=== PATIENT | male | born 1955 | race Caucasian/White ===

== ENCOUNTER → 2019-03-08 | Outpatient (CLI) | payer MEDICARE, OTHER | END | disposition home or self-care (01) | LOC: LABPAT 15:19 | PROVIDERS: ATTEND Orthopaedic Surgery | DX: Z01.812 Encounter for preprocedural laboratory examination (principal) | CPT/HCPCS: 87070 ==

== ENCOUNTER 2019-03-21 11:02 | Day surgery (SDC) | payer MEDICARE, OTHER ==
--- NOTE | 2019-03-20 09:17 | HP ---
HISTORY AND PHYSICAL REASON FOR ADMISSION: Surgery scheduled for 03/21/2019 HISTORY OF PRESENT ILLNESS: Marbin Rosado is a 63-year-old patient seen with symptomatic left knee osteoarthritis. We discussed options for treatment. He elected to proceed with left total knee arthroplasty. Consent regarding the procedure was obtained. Medical clearance was provided by Dr. Coates's office. PAST MEDICAL HISTORY: Hypertension, hyperlipidemia. PAST SURGICAL HISTORY: Left knee arthroscopy. DAILY MEDICATIONS: Lisinopril, simvastatin, spironolactone, Naprosyn. ALLERGIES: None. SOCIAL HISTORY: Denies tobacco use. PHYSICAL EXAMINATION: Evaluation of the left knee: His range of motion is 0 to 115 degrees. He is tender along the medial joint line. There is crepitus along the medial and patellofemoral compartments with range of motion. There is pain with patellofemoral compression. Ligaments are stable. Hip rotation is without pain. His distal neurovascular exam is intact. RADIOGRAPHS: Radiographs of the left knee revealed severe medial and moderate patellofemoral compartment osteoarthritis. IMPRESSION: 1. Left knee osteoarthritis. 2. Hypertension. 3. Hyperlipidemia. PLAN: Left total knee arthroplasty. Surgery scheduled for 03/21/2019. MMODL / IJN: [id number] /
[~2019-03-21 11:02] MED LIST: HYDROmorphone 0.5 MG/0.5 ML SYRINGE IVP PRN; LIDOCAINE 1% 20 ML VIAL (10MG/ML) FOR IV START INTRADERMA PRN; MELOXICAM 7.5 MG TAB PO ONE; ONDANSETRON 4 MG/2 ML VIAL IVP ONE; ROPIVACAINE 246.25 MG, EPINEPHrine 0.5 MG, KETOROLAC 30 MG, cloNIDine HCL/PF 80 MCG, WA... MISCELLANE ONE; TRANEXAMIC ACID 1,000 MG in SODIUM CHLORIDE 0.9% 100 ML IVPB ONE
[2019-03-21] MEDS ORDERED: ACETAMINOPHEN TAB 500 MG TAB PO ONE (11:31)
[2019-03-21] MEDS: LACTATED RINGERS 1,000 ML IV SCH ×3 (11:50→16:50)
[2019-03-21] MEDS ORDERED: DEXAMETHASONE SOD PHOSPHATE 10 MG/ML 1 ML VIAL IV ONE (11:52)
[2019-03-21] MEDS ORDERED: fentaNYL (PF) 50 MCG/ML 2 ML AMP IVP ONE (11:56)
[2019-03-21] MEDS ORDERED: MIDAZOLAM PF (FBP) 2 MG/2 ML VIAL IVP ONE (11:56)
[2019-03-21] MEDS ORDERED: ROPIVACAINE 0.2%-NS ON-Q PUMP 1,090 MG, EMPTY PAIN BALL 1 EACH MISCELLANE PRN (12:21)
--- NOTE | 2019-03-21 12:23 | P.ANPRN ---
Procedure Note - Anesthesia - Nerve Block Performed Left Adductor Canal Infusion Time Out Performed: Yes Date of Procedure: 03/21/19 Procedure Start Time: 11:55 Procedure Stop Time: 12:07 Location of Patient Procedure: PreOp Indication: Acute Post-Operative Pain Specifically requested for management of pain by DrTenzin: Rafi Hodge Sedation Type: Sedate with meaningful contact maintained Preparation: Sterile Prep Position: Supine Catheter Depth at Skin (cm): 8 Catheter: Indwelling Needle Types: Pajunk Needle Gauge: 18 Ultrasound used to visualize needle placement: Yes Ultrasound used to observe medication spread: Yes Injectate: 0.5% Ropivacaine (see comment for volume) (20 cc) Blood Aspirated: No Pain Paresthesia on Injection Noted: No Resistance on Injection: Normal Image Stored and Saved: Yes Events: Uneventful and Well Tolerated
[2019-03-21] MEDS ORDERED: SODIUM CHLORIDE 0.9% 100 ML BAG ONE (13:18)
[2019-03-21] MEDS ORDERED: PROPOFOL 10 MG/ML 20 ML VIAL IV ONE (13:18)
[2019-03-21] MEDS ORDERED: PHENYLEPHRINE-0.9% NACL SYG 1 MG/10 ML SYRINGE ONE (13:18)
[2019-03-21] MEDS ORDERED: TRANEXAMIC ACID 1,000 MG/10 ML VIAL ONE (13:18)
[2019-03-21] MEDS ORDERED: MIDAZOLAM 2 MG/2 ML VIAL ONE (13:18)
[2019-03-21] MEDS ORDERED: fentaNYL (PF) 50 MCG/ML 2 ML AMP ONE (13:18)
[2019-03-21] MEDS ORDERED: ceFAZolin 3,000 MG in SODIUM CHLORIDE 0.9% IRRIGATIO 3,000 ML IRRIGATION ONE (13:48)
[2019-03-21] MEDS ORDERED: ONDANSETRON 4 MG/2 ML VIAL IVP PRN (15:18)
[2019-03-21] MEDS ORDERED: NALOXONE 0.4 MG/ML 1 ML VIAL IV PRN (15:18)
[2019-03-21] MEDS ORDERED: HYDROmorphone 1 MG/ML 1 ML SYRINGE IVP PRN (15:18)
[2019-03-21] MEDS ORDERED: HYDROmorphone 0.5 MG/0.5 ML SYRINGE IVP PRN ×2 (15:18)
[2019-03-21] MEDS ORDERED: HYDROcodone/APAP 5-325MG 1 EACH TAB PO PRN (15:18)
--- NOTE | 2019-03-21 15:18 | P.OP ---
Date of Procedure: 03/21/19 Preoperative Diagnosis: Left knee osteoarthritis Postoperative Diagnosis: Left knee osteoarthritis Procedure(s) Performed: Left total knee arthroplasty Implants: 1. Microport evolution size 6 left cemented femur 2. Microport evolution size 6 left cemented tibial baseplate 3. Microport evolution size 6 left CS 12 mm polyethylene tibial insert 4. Microport advance 38 mm all polyethylene cemented patella Anesthesia: regional (Adductor canal catheter), local, spinal Surgeon: Rafi Hodge Order Planner #1: Don Jang Estimated Blood Loss (ml): 30 Pathology: other (Bone) Condition: stable Disposition: PACU Indications for Procedure: 63-year-old patient seen with symptomatic left knee osteoarthritis. After having treatment options discussed, he elected to proceed with total knee arthroplasty. Operative Findings: See description of procedure Description of Procedure: Patient was taken to the operative suite after having an adductor canal catheter placed by the department of anesthesia for postoperative pain management. Patient underwent a spinal anesthetic by the department of anesthesia. Patient was given preoperative IV intake antibiotics and TXA. A well-padded tourniquet was placed about the left lower extremity. The lower extremity was then prepped and draped in the normal sterile orthopedic fashion. The extremity was elevated, a tourniquet was insufflated to 300. A standard anterior incision was made sharply through skin. Dissection was taken down through the subcutaneous soft tissues down to the extensor mechanism. A medial arthrotomy was performed, patella was everted and knee was flexed. There was advanced osteoarthritis noted. I introduced my distal intramedullary femoral drill. I then introduced the distal femoral cutting jig. Dada WEIR secured the cutting jig with 2 pins. I held retractors in position while Dada WEIR performed the distal femoral resection through the guide area we now removed her distal femoral cutting guide. We now placed our 4-in-1 femoral cutting block and positioned and it was secured with 2 pins by Dada WEIR while I held the block in position. The distal femoral finishing was now completed. A proximal tibial cutting guide was positioned. I held the guide in the appropriate position with both hands well Dada WEIR inserted stabilizing pins into the guide. Proxim al tibial cut was made. We now placed a trial femoral component into position, along with an appropriate size tibial tray and insert. We now took the knee through range of motion and had full extension good flexion and good overall soft tissue balance noted. The patella was everted and stabilized with 2 towel clips held by Dada WEIR while I performed a flush with patellar quad tendon utilizing a fresh sawblade. We templated the patella, appropriate drill holes were made. An appropriate trial patella was positioned, knee was taken through full range of motion with the patella tracking very nicely. The trial patella was removed. Drill holes were made through the femoral component. All trial components were removed after marking off the appropriate rotation of the tibia. Retractors were now positioned along the proximal tibia. An appropriate keel punch was made with the appropriate size tibial guide by myself on Dada WEIR assisted by holding retractors. At this point appropriate size implants were chosen and opened. The joint was irrigated copiously with pulse lavage mechanical irrigation. The posterior capsule was infiltrated with local analgesic. The wound was irrigated with pulse lavage mechanical irrigation. We mixed antibiotic methylmethacrylate. We placed the knee into flexion. We placed multiple retractors assisted by Dada WEIR to expose the proximal tibia. Once the methyl methacrylate was ready, the tibial component was cemented into place removing any excess methylmethacrylate form by both myself and Dada WEIR. The femoral component was cemented into place removing the removing any excess methylmethacrylate performed by both myself and Dada WEIR. We then inserted the appropriate size polyethylene tibial insert. We made sure that it was locked into position. We took the knee into full extension, and then back in a flexion making sure we had removed any excess methylmethacrylate. The patellar component was then cemented down and secured with clamp. Excess methylmethacrylate removed. We kept the knee in full extension, patellar clamp in position until methylmethacrylate had hardened. Once it had hardened the patellar clamp was removed. The knee was taken through full range of motion. The patella tracked nicely. There was good soft tissue balancing. The tourniquet was now released. Additional hemostasis was achieved via electrocautery. A second gram of TXA was given. The wound again was irrigated with pulse lavage mechanical irrigation. The superficial soft tissues were infiltrated local analgesic. The extensor mechanism was repaired with Vicryl. We checked the repair with range of motion and it was stable. The subcutaneous soft tissues were repaired with Vicryl in layers. The skin was a pproximated with pernio/Dermabond. Sterile dressings were applied followed by loose web roll and Lokesh bandage. The patient was transferred to a bed, and taken to recovery in stable and satisfactory condition. Dada WEIR assisted with this complex procedure.
[2019-03-21] MEDS ORDERED: LACTATED RINGERS 1,000 ML IV ONE (15:24)
--- NOTE | 2019-03-21 15:55 | XR ---
EXAMINATION TYPE: XR knee limited LT DATE OF EXAM: 03/21/2019 COMPARISON: NONE HISTORY: 63-year-old male evaluation for postoperative abnormality and alignment TECHNIQUE: 2 views FINDINGS: Images show placement of left total knee arthroplasty. Both distal femoral and proximal tibial compon ents of the prosthesis are well seated without periprosthetic fracture. Alignment grossly anatomic. S cattered soft tissue air as well as intra-articular air relating to recent operation. IMPRESSION: Uncomplicated postoperative appearance left total knee arthroplasty.
[2019-03-21] MEDS: HYDROcodone/APAP 7.5-325MG 1 EACH TAB PO PRN (19:04)
[2019-03-21 19:14] VITALS: BMI 32.6
[2019-03-21] MEDS ORDERED: ENOXAPARIN 30 MG/0.3 ML SYRINGE SQ SCH (21:00)
[2019-03-21] MEDS ORDERED: SENNOSIDES-DOCUSATE SODIUM 1 EACH TAB PO SCH (21:00)
[2019-03-22] MEDS: HYDROcodone/APAP 7.5-325MG 1 EACH TAB PO PRN ×2 (00:04→09:04)
[2019-03-22] MEDS: LACTATED RINGERS 1,000 ML IV SCH ×2 (01:35→12:34)
[2019-03-22 06:29] LABS: Basophils % (A) 0 %; Eosinophils % (A) 0 %; HCT 42.3 % (39.0-53.0); HGB 14.5 gm/dL (13.0-17.5); Lymphocytes # (A) 0.9 k/uL (1.0-4.8); Lymphocytes % (A) 5 %; MCH 30.6 pg (25.0-35.0); MCHC 34.4 g/dL (31.0-37.0); Mean Platelet Volume 5.6; Monocytes # (A) 0.9 k/uL (0-1.0); Monocytes % (A) 5 %; Neutrophils % (A) 90 %; Platelet Count 220 k/uL (150-450); RBC 4.75 m/uL (4.30-5.90); RDW 14.2 % (11.5-15.5); WBC 17.8 k/uL (3.8-10.6)
[2019-03-22 08:28] VITALS: BP 109/83; PULSE 63; RESP 14; TEMP 98
[2019-03-22] MEDS ORDERED: MELOXICAM 7.5 MG TAB PO SCH (09:00)
--- NOTE | 2019-03-22 11:15 | P.PN ---
Subjective Progress Note Date: 03/22/19 Principal diagnosis: Status post left total knee arthroplasty Patient evaluated today at bedside, is resting comfortably. He is ambulating well with therapy. He was noted to have some shortness of breath when ambulating, he states this is baseline due to his previous cardiac history. Denies any chest pain or shortness of breath. Objective - Vital Signs Vital signs: Vital Signs Temp 98 F 03/22/19 07:00 Pulse 63 03/22/19 07:00 Resp 14 03/22/19 07:00 BP 109/83 03/22/19 07:00 Pulse Ox 94 L 03/22/19 07:00 Intake & Output 03/21/19 03/22/19 03/22/19 18:59 06:59 18:59 Intake Total 2000 1160 Output Total 30 1000 400 Balance 1971 160 -400 Intake: IV 2000 Oral 1160 Output: Urine 1000 400 Estimated Blood Loss 30 Other: Voiding Method Urinal # Voids 1 - Exam Left lower extremity: Incision is clean, dry, and intact. The exofin fusion tape is in good condition. There is minimal soft tissue swelling and ecchymosis surrounding the medial and lateral aspects of the incision. Calf is soft, no tenderness with palpation. Plantar flexion, dorsiflexion, EHL, FHL are intact. Sensory exam to light touch throughout the extremity is intact, dorsal pedis pulses 2+. - Labs CBC & Chem 7: 03/22/19 05:47 Labs: Abnormal Lab Results - Last 24 Hours (Table) 03/22/19 Range/Units 05:47 WBC 17.8 H (3.8-10.6) k/uL Neutrophils # 16.0 H (1.3-7.7) k/uL Lymphocytes # 0.9 L (1.0-4.8) k/uL Assessment and Plan Plan: Assessment: Postoperative day #1 status post left total knee arthroplasty Plan: Pain control, we'll discharge home on oral medication GI and DVT prophylaxis, resume Xarelto Home physical therapy and nursing after discharge Wound care instructions discussed Medical recommendations We'll discharge home today Time with Patient: Less than 30
--- NOTE | 2019-03-22 11:18 | P.DS ---
Providers Date of admission: 03/21/2019 Expected date of discharge: 03/22/19 Attending physician: Rafi Hodge Consults: 03/21/19 15:18 Consult Physician Routine Consulting Provider: Yolanda Waters Consult Reason/Comments: Medical management Do you want consulting provider notified?: Yes Primary care physician: Isabel Coates [facility] Hospital Course: Date of admission: 03/21/2019 Date of discharge: 03/22/2019 Admission diagnosis: Status post left total knee arthroplasty Discharge diagnosis: Same Attending physician: Dr. Hodge Surgical procedures: Left total knee arthroplasty Brief history: Patient is a 63-year-old male with a history of progressive primary left knee osteoarthritis. At this point patient has failed conservative treatment measures and has opted to proceed with a elective left total knee arthroplasty. Hospital course: Details of patient's surgery can be found in operative report. Patient tolerated the procedure well and was subsequently transported to orthopedic floor. Patient's orthopeidc and medical care was provided daily. Patient had daily laboratory tests performed for evaluation of overall blood counts. Patient had daily physical therapy to include strengthening range of motion as well as education with walker ambulation. Patient had daily CPM usage as part of their physical therapy program. Patient was treated with Xarelto for their postoperative DVT prophylaxis during their inpatient stay. Patient was noted to have a relatively uneventful postoperative course. Patient reported satisfactory pain control with oral pain medications by postoperative day 0. Patient showed satisfactory progress with physical therapy. Patient moved steadily through the program and had no difficulty meeting the goals by postoperative day 1. Given patient's otherwise satisfactory course and having met physical therapy goals, plan is to discharge patient home on postoperative day 1. Discharge condition/disposition: Patient will be discharged home in stable condition. Discharge medications: Instructions are given on resumption of patient's normal daily medications per primary care recommendation, in addition patient will be prescribed Red Bud 7.5 mg/325 mg, colace 100mg Discharge instructions: 1. Wound care and infection precautions, keep incision dry and covered while showering, no lotions, creams, moisturizers. No soaking, tubs, pools, hottubs. Do not scrub over the incision. 2. Weight-bear as tolerated with walker / cane until follow-up. 3. Ice and elevate when necessary. Do not exceed 20 minutes per hour with ice pack. 4. Utilize compression sleeve until seen at first follow up appointment. 5. Visiting nursing care. 6. Home physical therapy including home CPM. 7. Pain meds and anticoagulants per prescription. 8. Pain medication has potential to cause constipation. Increase oral fluid and fiber intake. Contact primary care provider if you have not had a bowel movement within 48 hours after discharge 9. No anti-inflammatory medication until discussed at first post operative visit, this including Motrin, Aleve, Mobic, Diclofenac 10. Follow up in office at 2 weeks postop with Dada Jang PA-C 11. Follow up with your primary care doctor 7-10 days after discharge. 12. Contact [facility] with any questions, . Procedures: Left total knee arthroplasty Patient Condition at Discharge: Good Plan - Discharge Summary Discharge Rx Participant: Yes New Discharge Prescriptions: New Docusate [Colace] 100 mg PO DAILY #30 capsule HYDROcodone/APAP 7.5-325MG [[place] 7.5] 1 - 2 each PO Q6HR PRN #56 tab PRN Reason: Pain Continue Simvastatin [Zocor] 20 mg PO HS Cetirizine HCl [Zyrtec] 10 mg PO DAILY Spironolactone [Aldactone] 25 mg PO DAILY Naproxen [Naprosyn] 500 mg PO Q12HR Fluticasone Nasal [place] [Flonase Nasal [place]] 1 spray EA NOSTRIL BID Rivaroxaban [Xarelto] 20 mg PO DAILY Changed Lisinopril [Zestril] 20 mg PO DAILY #0 Discharge Medication List Cetirizine HCl [Zyrtec] 10 mg PO DAILY 06/25/15 [History] Simvastatin [Zocor] 20 mg PO HS 06/25/15 [History] Fluticasone Nasal [place] [Flonase Nasal [place]] 1 spray EA NOSTRIL BID 03/15/19 [History] Naproxen [Naprosyn] 500 mg PO Q12HR 03/15/19 [History] Rivaroxaban [Xarelto] 20 mg PO DAILY 03/15/19 [History] Spironolactone [Aldactone] 25 mg PO DAILY 03/15/19 [History] Docusate [Colace] 100 mg PO DAILY #30 capsule 03/22/19 [Rx] HYDROcodone/APAP 7.5-325MG [[place] 7.5] 1 - 2 each PO Q6HR PRN #56 tab 03/22/19 [Rx] Lisinopril [Zestril] 20 mg PO DAILY #0 03/22/19 [Rx] Follow up Appointment(s)/Referral(s): [facility] [NON-STAFF] - Isabel Coates DO [Primary Care Provider] - 03/30/19 4:00 pm Don Jang PAC [PHYSICIAN LEAD PYTHON DEVELOPER] - 04/06/19 4:00 pm Activity/Diet/Wound Care/Special Instructions: Orthopedic Discharge Instructions: 1. Wound care and infection precautions, keep incision dry and covered while showering, no lotions, creams, moisturizers. No soaking, pools, hot tubs. Do not scrub over incision. 2. Weight-bear as tolerated with walker / cane until follow-up. 3. Ice and elevate when necessary. Do not exceed 20 minutes per hour with ice pack. 4. Utilize compression sleeve until seen at first follow up appointment. 5. Pain meds and anticoagulants per prescription. 6. Pain medication has potential to cause constipation. Increase oral fluid and fiber intake. Contact primary care provider if you have not had a bowel movement within 48 hours after discharge. 7. No anti-inflammatory medication until discussed at first post operative visit, this including Motrin, Aleve, Mobic, Diclofenac. 8. Follow up in office at 2 weeks postop with Dada Jang PA-C 9. Follow up with your primary care doctor 7-10 days after discharge. 10. Contact [facility] with any questions, . Discharge Disposition: HOME WITH HOME HEALTH SERVICES
--- NOTE | 2019-03-22 11:38 | P.PN ---
Progress Note - Text 03/22 636am 63-year-old male status post total knee replacement by Dr. Hodge. Patient has an On-Q pump for postop pain control with the solution running at 8 mL an hour with a VAS of 2. Plan to continue On-Q pump infusion
--- NOTE | 2019-03-22 11:56 | P.CONS ---
History of Present Illness - Reason for Consult atrial fibrillation, CHF history - History of Present Illness 58-year-old pleasant gentleman was admitted for elective left knee arthroplasty success and underwent surgery patient is clinically doing well. Patient has hearing problems because of which was difficult to obtain history but the patient is clinically doing well patient denied any shortness of breath orthopnea proximal nocturnal dyspnea patient has minimally decreased ejection fraction systolic dysfunction ejection fraction of 40 with 50% for which patient is on lisinopril although patient is on the hypotensive side because of which I asked him to hold off his lisinopril for next couple days and started him at the lower dose that is 20 mg of lisinopril after that. Patient is also on Aldactone which she can continue. Patient does have history of atrial fibrillation is on anticoagulation for that which will be continued. patient's pain is well controlled at this time. Review of Systems REVIEW OF SYSTEMS: CONSTITUTIONAL: No fever, no malaise, no fatigue. HEENT: No recent visual problems or hearing problems. Denied any sore throat. CARDIOVASCULAR: No chest pain, orthopnea, PND, no palpitations, no syncope. PULMONARY: No shortness of breath, no cough, no hemoptysis. GASTROINTESTINAL: No diarrhea, no nausea, no vomiting, no abdominal pain. NEUROLOGICAL: No headaches, no weakness, no numbness. HEMATOLOGICAL: Denies any bleeding or petechiae. GENITOURINARY: Denies any burning micturition, frequency, or urgency. MUSCULOSKELETAL/RHEUMATOLOGICAL: Denies any joint pain, swelling, or any muscle pain. ENDOCRINE: Denies any polyuria or polydipsia. The rest of the 14-point review of systems is negative. Past Medical History Past Medical History: Atrial Fibrillation, GERD/Reflux, Hearing Disorder / Deafness, Hyperlipidemia, Hypertension, Osteoarthritis (OA), Sleep Apnea/CPAP/BIPAP Additional Past Medical History / Comment(s): HYPERTROPHIC CARDIOMYOPATHY 2007 History of Any Multi-Drug Resistant Organisms: None Reported Past Surgical History: AICD, Heart Catheterization, Orthopedic Surgery, Pacemaker Additional Past Surgical History / Comment(s): HIATAL HERNIA SURG RAMOS KNEE SURGERIES. Cochlear Implant 2014; surgery for hypertrophic cardiomyopathy - "removed layers of muscle from my heart at the [facility] in August 2007" Past Anesthesia/Blood Transfusion Reactions: Previous Problems w/ Anesthesia Additional Past Anesthesia/Blood Transfusion Reaction / Comm: HARD TO INTUBATE R/T THROAT. Type of Cardiac Device: Permanent Pacemaker, AICD Device Placement Date:: 05/2010 Past Psychological History: PTSD Smoking Status: Never smoker Past Alcohol Use History: Occasional Additional Past Alcohol Use History / Comment(s): (SMOKED 1972 - FOR 4 MO)1/2PPD Past Drug Use History: None Reported - Past Family History Father Family Medical History: Deep Vein Thrombosis (DVT) Medications and Allergies Home Medications Medication Instructions Recorded Confirmed Type Cetirizine HCl [Zyrtec] 10 mg PO DAILY 06/25/15 03/21/19 History Simvastatin [Zocor] 20 mg PO HS 06/25/15 03/21/19 History Fluticasone Nasal [place] [Flonase 1 spray EA NOSTRIL BID 03/15/19 03/21/19 History Nasal [place]] Naproxen [Naprosyn] 500 mg PO Q12HR 03/15/19 03/21/19 History Rivaroxaban [Xarelto] 20 mg PO DAILY 03/15/19 03/21/19 History Spironolactone [Aldactone] 25 mg PO DAILY 03/15/19 03/21/19 History Docusate [Colace] 100 mg PO DAILY #30 capsule 03/22/19 Rx HYDROcodone/APAP 7.5-325MG [[place] 1 - 2 each PO Q6HR PRN #56 tab 03/22/19 Rx 7.5] Lisinopril [Zestril] 20 mg PO DAILY #0 03/22/19 03/21/19 Rx Allergies Allergy/AdvReac Type Severity Reaction Status Date / Time No Known Allergies Allergy Verified 03/21/19 11:20 Physical Exam Vitals: Vital Signs Temp Pulse Pulse Pulse Resp BP Pulse Ox 03/22/19 07:00 98 F 63 14 109/83 94 L 03/22/19 00:26 97.8 F 74 15 102/67 95 03/21/19 19:21 97.6 F 87 15 106/69 94 L 03/21/19 18:47 70 120/78 03/21/19 18:31 73 120/78 03/21/19 18:30 72 117/74 03/21/19 18:15 71 112/70 03/21/19 18:00 70 124/79 03/21/19 17:45 70 109/71 03/21/19 17:30 64 118/75 03/21/19 16:45 97.8 F 67 14 112/65 96 03/21/19 16:15 65 16 94/56 97 03/21/19 16:00 64 16 96/59 5 L 03/21/19 15:45 99.2 F 72 16 93/58 94 L 03/21/19 15:30 74 16 85/60 94 L 03/21/19 15:26 99.2 F 88 18 83/59 93 L 03/21/19 12:17 76 16 130/73 96 Intake and Output 03/21/19 03/22/19 03/22/19 22:59 06:59 14:59 Intake Total 1630 480 Output Total 400 600 400 Balance 1230 -120 -400 Intake: IV 950 Oral 680 480 Output: Urine 400 600 400 Other: Voiding Method Urinal # Voids 1 1 PHYSICAL EXAMINATION: GENERAL: The patient is alert and oriented x3, not in any acute distress. Well developed, well nourished. HEENT: Pupils are round and equally reacting to light. EOMI. No scleral icterus. No conjunctival pallor. Normocephalic, atraumatic. No pharyngeal erythema. No thyromegaly. CARDIOVASCULAR: S1 and S2 present. No murmurs, rubs, or gallops. PULMONARY: Chest is clear to auscultation, no wheezing or crackles. ABDOMEN: Soft, nontender, nondistended, normoactive bowel sounds. No palpable organomegaly. MUSCULOSKELETAL: deferred to orthopedic surgery EXTREMITIES: No cyanosis, clubbing, or pedal edema. NEUROLOGICAL: Gross neurological examination did not reveal any focal deficits. SKIN: No rashes. Results CBC & Chem 7: 03/22/19 05:47 Labs: Abnormal Lab Results - Last 24 Hours (Table) 03/22/19 Range/Units 05:47 WBC 17.8 H (3.8-10.6) k/uL Neutrophils # 16.0 H (1.3-7.7) k/uL Lymphocytes # 0.9 L (1.0-4.8) k/uL Assessment and Plan Plan: -congestive heart failure chronic systolic dysfunction: Patient is euvolemic not in heart failure exacerbation. Medication management as mentioned abovethe patient has an AICD in place. -Atrial fibrillation presently rate controlled presently sinus rhythm . -leukocytosis reactive without any signs or symptoms of infection no further testing is necessary in this is secondary to surgery -gastric esophageal reflux disease -Left knee arthroplasty pain management as per primary service -Hyperlipidemia -Obstructive sleep apnea and uses CPAP machine which she will continue. -Hypertension presently hypotensive because of which are medication management as mentioned above -traumatic hearing loss for which patient has a cochlear implant
[2019-03-22] MEDS ORDERED: RIVAROXABAN 20 MG TAB PO SCH (17:30)
[2019-03-22] MEDS ORDERED: FLUTICASONE 50MCG/SPRAY NASAL 16GM EA NOSTRIL SCH (21:00)
[2019-03-22] MEDS ORDERED: ATORVASTATIN 10 MG TAB PO SCH (21:00)
[2019-03-23] MEDS ORDERED: RIVAROXABAN 20 MG TAB PO SCH (09:00)
== END 2019-03-22 13:51 | disposition home health service (06) ==
LOC: OR 11:02 → 4SSUR 15:26 → OR 03-22 13:51
PROVIDERS: ATTEND Orthopaedic Surgery
DX: M17.12 Unilateral primary osteoarthritis, left knee (principal); E78.5 Hyperlipidemia, unspecified; I25.10 Atherosclerotic heart disease of native coronary artery without angina pectoris; I11.0 Hypertensive heart disease with heart failure; I50.22 Chronic systolic (congestive) heart failure; I42.1 Obstructive hypertrophic cardiomyopathy; I44.2 Atrioventricular block, complete; Z95.1 Presence of aortocoronary bypass graft; I48.91 Unspecified atrial fibrillation; I42.9 Cardiomyopathy, unspecified; K21.9 Gastro-esophageal reflux disease without esophagitis; H91.90 Unspecified hearing loss, unspecified ear; Z96.21 Cochlear implant status; G47.30 Sleep apnea, unspecified; Z99.89 Dependence on other enabling machines and devices; Z84.89 Family history of other specified conditions; Z95.810 Presence of automatic (implantable) cardiac defibrillator; Z87.891 Personal history of nicotine dependence; I65.23 Occlusion and stenosis of bilateral carotid arteries; R01.1 Cardiac murmur, unspecified; I38 Endocarditis, valve unspecified; Z79.1 Long term (current) use of non-steroidal anti-inflammatories (NSAID); Z79.899 Other long term (current) drug therapy; Z79.891 Long term (current) use of opiate analgesic
CPT/HCPCS: 27447; 97161; 64448; 76942; 85025; 88300; 73560; C1776; J2250 ×2; J1100; J0690 ×3; J2405; J3010; J1650; J2370; J2704; J2795; 93005

== ENCOUNTER 2019-03-30 17:16 | Inpatient (IN) | payer OTHER, MEDICARE ==
[2019-03-30] MEDS: ATORVASTATIN 10 MG TAB PO SCH (21:24)
[2019-03-30] MEDS: NAPROXEN 250 MG TAB PO SCH (21:24)
--- NOTE | 2019-03-31 07:59 | P.HPOR ---
History of Present Illness H&P Date: 03/31/19 Chief Complaint: Left knee periprosthetic infection Patient is a 63-year-old male who recently underwent a left total knee arthroplasty by Dr. Hodge on 03/21/2019. Patient contacted our office yesterday with regards to increased pain, swelling and redness of the left knee. He was seen in the outpatient setting yesterday afternoon. Patient states the symptoms have been present for about 4-5 days, progressively gotten worse. After evaluation in the office by myself and Dr. Hodge, there is high concern for an infection involving his left knee. I contacted the hospital, patient was directly admitted. Consults were placed for both internal medicine and infectious disease. Our plan is to proceed with a incision and drainage with irrigation and debridement, polyethylene tibial liner exchange, antibiotic bead placement on 03/31/2019. Patient was made nothing by mouth last night. Review of Systems Constitutional: Reports as per HPI Past Medical History Past Medical History: Atrial Fibrillation, GERD/Reflux, Hearing Disorder / Deafness, Hyperlipidemia, Hypertension, Osteoarthritis (OA), Sleep Apnea/CPAP/BIPAP Additional Past Medical History / Comment(s): HYPERTROPHIC CARDIOMYOPATHY 2007 History of Any Multi-Drug Resistant Organisms: None Reported Past Surgical History: AICD, Heart Catheterization, Orthopedic Surgery, Pacemaker Additional Past Surgical History / Comment(s): HIATAL HERNIA SURG RAMOS KNEE SURGERIES. Cochlear Implant 2014; surgery for hypertrophic cardiomyopathy - "removed layers of muscle from my heart at the [facility] in August 2007" Past Anesthesia/Blood Transfusion Reactions: Previous Problems w/ Anesthesia Additional Past Anesthesia/Blood Transfusion Reaction / Comment(s): HARD TO INTUBATE R/T THROAT. Type of Cardiac Device: Permanent Pacemaker, AICD Device Placement Date:: 05/2010 Past Psychological History: PTSD Smoking Status: Never smoker Past Alcohol Use History: Occasional Additional Past Alcohol Use History / Comment(s): (SMOKED 1972 - FOR 4 MO)1/2PPD Past Drug Use History: None Reported - Past Family History Father Family Medical History: Deep Vein Thrombosis (DVT) Medications and Allergies Home Medications Medication Instructions Recorded Confirmed Type Cetirizine HCl [Zyrtec] 10 mg PO DAILY 06/25/15 03/30/19 History Simvastatin [Zocor] 20 mg PO HS 06/25/15 03/30/19 History Fluticasone Nasal [place] [Flonase 1 spray EA NOSTRIL BID 03/15/19 03/30/19 History Nasal [place]] Naproxen [Naprosyn] 500 mg PO Q12HR 03/15/19 03/30/19 History Rivaroxaban [Xarelto] 20 mg PO DAILY 03/15/19 03/30/19 History Spironolactone [Aldactone] 25 mg PO DAILY 03/15/19 03/30/19 History Docusate [Colace] 100 mg PO DAILY #30 capsule 03/22/19 03/30/19 Rx Lisinopril [Zestril] 20 mg PO DAILY #0 03/22/19 03/30/19 Rx HYDROcodone/APAP 7.5-325MG [[place] 1 - 2 tab PO Q6HR PRN 03/30/19 03/30/19 History 7.5] Allergies Allergy/AdvReac Type Severity Reaction Status Date / Time No Known Allergies Allergy Verified 03/30/19 18:20 Physical Examination Left lower extremity: Obvious soft tissue swelling noted throughout the extremity, there is multiple areas of erythema surrounding the knee and trending down into the lower leg. There is no obvious drainage from the incision, the exofin tape is still intact. Active and passive motion reproduces significant discomfort around the knee, he is tender with palpation throughout the entire knee. Calf is soft, no tenderness with palpation. His sensory exam to light touch throughout the extremities intact. Results - Diagnostic results Knee x-ray: report reviewed, image reviewed Assessment and Plan Plan: Imaging: X-rays were done in the office yesterday, 2 view left knee. Images demonstrated good hardware placement, no obvious lucencies visible. Assessment: 1. Left knee pain/swelling 2. Left knee periprosthetic infection 3. History of recent left total knee arthroplasty Plan: Patient was made nothing by mouth last night, plan to proceed with incision and drainage with irrigation and debridement, polyethylene tibial liner exchange, antibiotic bead placement on 03/31/2019. Obtain consent Pain control Other certified court/medical interpreter recommendations Further recommendations to follow Time with Patient: Less than 30
[2019-03-31] MEDS: NAPROXEN 250 MG TAB PO SCH ×2 (08:11→21:00)
[2019-03-31 09:26] LABS: Basophils # (A) 0.1 k/uL (0-0.2); Basophils % (A) 1 %; Eosinophils # (A) 0.1 k/uL (0-0.7); Eosinophils % (A) 1 %; HCT 38.9 % (39.0-53.0); Lymphocytes # (A) 0.9 k/uL (1.0-4.8); Lymphocytes % (A) 9 %; MCH 31.7 pg (25.0-35.0); MCHC 33.4 g/dL (31.0-37.0); Mean Platelet Volume 5.6; Monocytes # (A) 0.8 k/uL (0-1.0); Monocytes % (A) 7 %; Neutrophils # (A) 8.6 k/uL (1.3-7.7); Neutrophils % (A) 81 %; Platelet Count 333 k/uL (150-450); RBC 4.09 m/uL (4.30-5.90); RDW 14.7 % (11.5-15.5); WBC 10.6 k/uL (3.8-10.6)
[2019-03-31 09:52] LABS: ALT 33 U/L (21-72); AST 31 U/L (17-59); African American GFR (CKD) >90 (>60 ml/min/1.73 sqM); Albumin 3.7 g/dL (3.5-5.0); Alkaline Phosphatase 73 U/L (38-126); Anion Gap 11 mmol/L; Blood Urea Nitrogen 21 mg/dL (9-20); Calcium 9.8 mg/dL (8.4-10.2); Carbon Dioxide 26 mmol/L (22-30); Chloride 99 mmol/L (98-107); Glucose 101 mg/dL (74-99); Potassium 4.7 mmol/L (3.5-5.1); Sodium 136 mmol/L (137-145); Total Bilirubin 1.6 mg/dL (0.2-1.3); Total Protein 6.6 g/dL (6.3-8.2)
[2019-03-31] MEDS ORDERED: VANCOMYCIN IV PER PHARMACY 1 EACH MISC MISCELLANE PRN ×2 (11:44→15:46)
[2019-03-31] MEDS ORDERED: VANCOMYCIN 1,500 MG in SODIUM CHLORIDE 0.9% 250 ML IVPB SCH (11:45)
[2019-03-31] MEDS: SODIUM CHLORIDE 0.9% 1,000 ML IV SCH (11:53)
[2019-03-31] MEDS ORDERED: VANCOMYCIN 1,750 MG in SODIUM CHLORIDE 0.9% 500 ML 500 ML IVPB SCH (12:00)
[2019-03-31] MEDS ORDERED: LACTATED RINGERS 1,000 ML IV ONE (12:28)
[2019-03-31] MEDS ORDERED: VANCOMYCIN 1,000 MG VIAL MISCELLANE STA (14:02)
[2019-03-31] MEDS ORDERED: TOBRAMYCIN SULFATE 1.2 GM VIAL MISCELLANE STA (14:02)
[2019-03-31] MEDS ORDERED: fentaNYL (PF) 50 MCG/ML 2 ML AMP ONE (14:34)
[2019-03-31] MEDS ORDERED: MIDAZOLAM 2 MG/2 ML VIAL ONE (14:34)
[2019-03-31] MEDS: SPIRONOLACTONE 25 MG TAB PO SCH (14:43)
[2019-03-31] MEDS: DOCUSATE 100 MG CAP PO SCH (14:43)
[2019-03-31] MEDS ORDERED: SODIUM CHLORIDE 0.9% 100 ML with VANCOMYCIN 1,000 MG IV ONE ×2 (15:07)
[2019-03-31] MEDS ORDERED: ONDANSETRON 4 MG/2 ML VIAL IVP PRN (15:42)
[2019-03-31] MEDS ORDERED: NALOXONE 0.4 MG/ML 1 ML VIAL IV PRN (15:42)
[2019-03-31] MEDS ORDERED: HYDROmorphone 0.5 MG/0.5 ML SYRINGE IVP PRN ×2 (15:42)
--- NOTE | 2019-03-31 15:42 | P.OP ---
Date of Procedure: 03/31/19 Preoperative Diagnosis: Infected left total knee arthroplasty Postoperative Diagnosis: Same Procedure(s) Performed: Left knee arthrotomy with polyethylene exchange, irrigation and insertion of antibiotic beads Implants: Microport size 6 12 mm polyethylene tibial insert Anesthesia: spinal Surgeon: Rafi Hodge Deck Scaler #1: Don Jang Estimated Blood Loss (ml): 25 Pathology: other (Cultures) Condition: stable Disposition: PACU Indications for Procedure: 63-year-old patient seen with a probable infected left total knee arthroplasty. I recommended arthrotomy with irrigation exchange polyethylene and antibiotic b ead placement. The procedure, risks, complications and recovery were discussed. The patient was agreeable and consent was obtained. Operative Findings: See description of procedure Description of Procedure: The patient was taken to the operative suite. The patient underwent a spinal anesthetic by the department of anesthesia. A well-padded tourniquet was placed proximal left thigh. The left lower extremity was prepped and draped in the normal sterile orthopedic fashion. The extremity was elevated and tourniquet insufflated to 300. An incision made over the previous cicatrix sharply through skin. We dissected down through the subcu soft tissues down to extensor mechanism. We encountered some hematoma was evacuated. The sutures repairing the arthrotomy were now removed. Cultures were obtained superficially and cultures were obtained deep in the joint. There was hematoma which was evacuated. The components appeared stable. The polyethylene tibial tray was now removed without difficulty. We now irrigated the wound with 6000 mL of antibiotic irrigant. The wound was explored and I didn't see any abnormal necrotic tissue. The components appeared stable. A new size 6-tibial insert 12 mm now inserted. It was put in position and secure. We again irrigated the wound out copiously with pulse lavage mechanical irrigation. I now introduced the antibiotic beads that were combination of vancomycin and tobramycin. The extensor mechanism was now repaired with #3 Vicryl. The subcu soft tissues were repaired in layers with 2-0 Vicryl. The skin is proximal skin mark. Sterile dressings were applied. The patient was awakened, transferred to a bed and recovery stable condition. Dada WEIR assisted with the procedure.
--- NOTE | 2019-03-31 19:14 | CONS ---
CONSULTATION DATE OF SERVICE: 03/31/2019 REASON FOR CONSULTATION: Advice regarding history atrial fibrillation and multiple other medical issues requested by Dr. Hodge. HISTORY OF PRESENT ILLNESS: This 63-year-old gentleman with a past medical history of multiple medical problems including atrial fibrillation, GERD, hypertension, hyperlipidemia, history of DJD, history of hypertrophic cardiomyopathy in 2018, history AICD being followed Dr. Coates in the outpatient setting underwent left total knee arthroplasty by Dr. Hodge. The patient has noted some erythema, redness and swelling, increased pain and some stiffness of the left knee and the patient taken to [facility] and was admitted to the hospital for further evaluation and treatment. Left knee prosthetic infection was suspected. Incision and drainage with irrigation and debridement with antibiotics also being planned at this time. There is no history of fever, rigors or chills. No history of headache, loss of consciousness or seizures. There is no history of chest pain, palpitation, shortness of breath at this time. PAST MEDICAL HISTORY: History of atrial ablation, history of GERD, hypertension, hyperlipidemia, history of sleep apnea, BiPAP, history of hypertrophic cardiomyopathy, History of AICD, cardiac catheterization. MEDICATIONS: Medications prior to admission include: 1. Xarelto 20 mg p.o. daily. 2. Aldactone 25 mg p.o. daily. 3. Zocor 20 mg q.h.s. 4. Naprosyn 500 mg p.o. b.i.d. 5. Zestril 20 mg p.o. daily. 6. [place] 7.5 q.6h p.r.n. 7. Flonase 1 spray b.i.d. 8. Colace 100 mg. 9. Zyrtec 10 mg daily. ALLERGIES: None. FAMILY HISTORY: History of DVT in the family. SOCIAL HISTORY: No history of smoking. Occasional alcohol intake. REVIEW OF SYSTEMS: ENT: No diminished vision. No diminished hearing. CARDIOVASCULAR: As mentioned earlier. RESPIRATION: No cough or hemoptysis. GI no nausea or vomiting. no dysuria or hematuria. NERVOUS SYSTEM: No numbness or weakness. ALLERGY/IMMUNOLOGY: No asthma or hayfever. MUSCULOSKELETAL: As mentioned earlier. HEMATOLOGY/ONCOLOGY: As mentioned earlier. ENDOCRINE: No history of diabetes or hypothyroidism. CONSTITUTIONAL: As mentioned earlier. DERMATOLOGY: Negative. RHEUMATOLOGY: Negative. PSYCHIATRIC: As mentioned earlier. PHYSICAL EXAMINATION: Alert and oriented times three. Pulse 84. Blood pressure 127/62, respirations 16, temperature 98.2, pulse ox 98% on room air. HEENT: Conjunctivae normal. Oral mucosa moist. NECK is no jugular venous distention. No carotid bruit. No lymph node enlargement. CARDIOVASCULAR SYSTEM: S1, S2 muffled. Ejection systolic murmur. No thrills. RESPIRATION: Breath sounds diminished in the bases. No rhonchi. No crackles. ABDOMEN: Soft, nontender. No mass palpable. LEGS: Left leg some swelling and erythema around the knee and as well as the right lower lobe also present. The knee is slightly tender. Warm to touch and other joints are normal. NERVOUS SYSTEM: Higher functions are normal. Cranial nerves normal. Moves all 4 limbs. No focal motor or sensory deficit. Lymphatics: No lymph nodes palpable in the neck, axillae or groin. LAB STUDIES: WBC 10.2, hemoglobin 13, sodium 130, potassium 4.7. ASSESSMENT: 1. Left knee pain and swelling, rule out cellulitis or periprosthetic infection. 2. History of recent left total knee joint arthroplasty. 3. History of atrial fibrillation. 4. History of gastroesophageal reflux disease. 5. Hypertension. 6. Hyperlipidemia. 7. History of degenerative joint disease. 8. History of sleep apnea. 9. History of hypertrophic cardiomyopathy 2018. 10.History of AICD. 11.History of congestive heart failure with chronic systolic dysfunction. 12.Hiatal hernia history. 13.History of pacemaker. 14.History of PTSD. 15.FULL CODE. RECOMMENDATIONS AND DISCUSSION: This 63-year-old gentleman presented with pain and swelling of the left knee, medically stable. I recommend to resume the home medication. Monitor closely. The patient is cleared for surgery. The patient has taken Xarelto on Thursday night, orthopedic surgery is planning incision and drainage. We will closely monitor. Further recommendations to follow. Repeat labs will be ordered. A copy of dictation being forwarded to Dr. Coates who is the primary physician. Thank you Dr. Hodge for letting us participate in the care of this patient. MMODL / IJN: [id number] /
[2019-03-31] MEDS: HYDROmorphone 1 MG/ML 1 ML SYRINGE IVP PRN ×2 (19:19→23:14)
[2019-03-31] MEDS: VANCOMYCIN 1,750 MG in SODIUM CHLORIDE 0.9% 500 ML 500 ML IVPB SCH (20:41)
[2019-03-31] MEDS: FLUTICASONE 50MCG/SPRAY NASAL 16GM EA NOSTRIL SCH (20:41)
[2019-03-31] MEDS: ATORVASTATIN 10 MG TAB PO SCH (20:41)
[2019-03-31] MEDS: SENNOSIDES-DOCUSATE SODIUM 1 EACH TAB PO SCH (20:41)
[2019-03-31] MEDS: HYDROcodone/APAP 7.5-325MG 1 EACH TAB PO PRN (22:14)
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
[2019-04-01] MEDS: ENOXAPARIN 30 MG/0.3 ML SYRINGE SQ SCH ×3 (01:04→20:56)
[2019-04-01] MEDS ORDERED: VANCOMYCIN 1,500 MG in SODIUM CHLORIDE 0.9% 250 ML IVPB ONE (03:00)
[2019-04-01] MEDS: HYDROmorphone 1 MG/ML 1 ML SYRINGE IVP PRN ×3 (03:33→16:40)
[2019-04-01] MEDS: HYDROcodone/APAP 7.5-325MG 1 EACH TAB PO PRN ×3 (06:53→20:54)
[2019-04-01 08:03] LABS: Basophils # (A) 0.1 k/uL (0-0.2); Basophils % (A) 1 %; Eosinophils # (A) 0.1 k/uL (0-0.7); Eosinophils % (A) 1 %; HCT 40.2 % (39.0-53.0); HGB 12.7 gm/dL (13.0-17.5); Lymphocytes # (A) 1.1 k/uL (1.0-4.8); Lymphocytes % (A) 8 %; MCH 30.2 pg (25.0-35.0); MCHC 31.7 g/dL (31.0-37.0); MCV 95.2 fL (80.0-100.0); Mean Platelet Volume 6.1; Monocytes # (A) 0.9 k/uL (0-1.0); Monocytes % (A) 7 %; Neutrophils # (A) 10.6 k/uL (1.3-7.7); Neutrophils % (A) 82 %; Platelet Count 378 k/uL (150-450); RBC 4.22 m/uL (4.30-5.90); RDW 14.9 % (11.5-15.5); WBC 12.9 k/uL (3.8-10.6)
[2019-04-01] MEDS: LORATADINE 10 MG TAB PO SCH (09:07)
[2019-04-01] MEDS: DOCUSATE 100 MG CAP PO SCH (09:07)
[2019-04-01] MEDS: SPIRONOLACTONE 25 MG TAB PO SCH (09:07)
[2019-04-01] MEDS: LISINOPRIL 20 MG TAB PO SCH (09:07)
[2019-04-01] MEDS: NAPROXEN 250 MG TAB PO SCH ×2 (09:07→20:55)
[2019-04-01] MEDS: FLUTICASONE 50MCG/SPRAY NASAL 16GM EA NOSTRIL SCH ×2 (09:07→20:56)
[2019-04-01] MEDS: VANCOMYCIN 1,750 MG in SODIUM CHLORIDE 0.9% 500 ML 500 ML IVPB SCH ×2 (09:08→20:56)
[2019-04-01 09:44] LABS: Erythrocyte Sedimentation Rate 36 mm/hr (0-15)
[2019-04-01] MEDS ORDERED: LIDOCAINE 1% INJ 10MG/ML (20 ML MDV) ONE (10:03)
--- NOTE | 2019-04-01 12:46 | IR ---
EXAMINATION TYPE: IR cvc insert >=5 years DATE OF EXAM: 04/01/2019 COMPARISON: NONE CLINICAL HISTORY: Infection Needs long-term intravenous access for antibiotics. PROCEDURE: After informed consent, the skin overlying the right basilic vein was localized with ultrasound and n oted to be compressible and patent. An ultrasound image was obtained and submitted on the patient's chart. The overlying skin was prepped and draped and Lidocaine was used for local anesthesia. A ski n suraj was made with a scalpel. Access was gained to the vein under ultrasound guidance with a 21 ga uge needle and a 0.018 inch wire was advanced. Access site was dilated with Peel-Away sheath and cat heter tailored to the appropriate length and advanced such that the distal tip is at the cavoatrial j unction. Spot image was obtained verifying placement. Catheter was fixed to the skin and a sterile dressing was placed following hemostasis. Catheter was aspirated and flushed with saline. Patient w as discharged in stable condition without complication.Maximal barrier technique is utilized. Ultras ound image is documented on the chart. Ultrasound used with sterile technique. Fluoro time and fluoroscopic images submitted to document procedure: 70 intraoperative C-arm images, 0.2 minutes fluoroscopy time IMPRESSION: STATUS POST ULTRASOUND AND FLUOROSCOPIC GUIDED PICC LINE PLACEMENT, READY FOR USE. THIS PROCEDURE WAS PERFORMED BY THE UNDERSIGNED.
--- NOTE | 2019-04-01 12:56 | P.PN ---
Progress Note - Text Progress Note Date: 04/01/19 Patient seen lying in bed comfortably. He states his knee feels better already. He denies any other complaints at this point. Incision appears stable. There is improvement in erythema. Distal neurovascular exam is intact. Negative Manjit, negative Homans. Impression: Status post left knee arthrotomy with polyethylene exchange irrigation and antibiotic seed placement Plan: Medical management DVT prophylaxis Infectious disease recommendations Physical therapy
[2019-04-01] MEDS: SODIUM CHLORIDE 0.9% 1,000 ML IV SCH (13:23)
--- NOTE | 2019-04-01 18:31 | XR ---
EXAMINATION TYPE: XR chest 1V confirm line [facility] DATE OF EXAM: 04/01/2019 COMPARISON: 08/03/2015 HISTORY: PICC line placement TECHNIQUE: Single frontal view of the chest is obtained. FINDINGS: There is left basilar consolidation and small effusion. PICC line seen with the tip in the right atrium. Cardiac device and postsurgical changes seen. No pneumothorax. No overt failure. Heart size stable. Arthropathy of the shoulders. IMPRESSION: 1. Left basilar infiltrate and small effusion. 2. PICC line with the tip overlying the right atrium
[2019-04-01] MEDS: SENNOSIDES-DOCUSATE SODIUM 1 EACH TAB PO SCH (20:55)
[2019-04-01] MEDS: ATORVASTATIN 10 MG TAB PO SCH (20:56)
--- NOTE | 2019-04-01 22:58 | P.PN ---
Subjective Progress Note Date: 04/01/19 63-year-old male who presents to Hospital for surgical intervention into his left knee. 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 The patient also has a history of hypertrophic cardiomyopathy, and underwent surgical correction at the [facility], also has cardiac dysrhythmia and has an AICD in place which replaced a prior pacemaker. His knee continued to bother him and consequently underwent a left total knee arthroplasty. Postoperatively he was progressing well for the first few days. His physical therapist came in house and noticed the leg starting to swell he was having some diminishing range of motion. On a follow-up visit there was no marked change to the leg it was swollen discolored and had poor range of motion. He was sent to his orthopedic surgeon and upon evaluation it appeared there was an acute change in the patient was brought to the hospital for further intervention. Concerns for infection to the left knee arthroplasty that was just placed a consult was requested. Antibiotic therapy had been ordered by the medicine service, however I held that until surgical cultures could be obtained, then vancomycin therapy initiated. Patient is times quite comfortable in the postoperative time frame. He relates before coming to hospital he did feel poorly he thinks he did have a fever and drenching sweats but did not have rigors. He did not note any extensive drainage from the joint. 04/01/2019 the patient is to enhance improvement in his status. He is certainly with less pain. Improved range of motion. Little drainage from the knee. He is not having fevers or chills as he was. Objective - Vital Signs Vital signs: Vital Signs Temp 98.2 F 04/01/19 21:02 Pulse 80 04/01/19 21:02 Resp 16 04/01/19 21:02 BP 122/75 04/01/19 21:02 Pulse Ox 96 04/01/19 21:02 Intake & Output 04/01/19 04/01/19 04/02/19 06:59 18:59 06:59 Intake Total 480 400 400 Output Total 700 500 Balance -220 -100 400 Intake: IV 400 400 Sodium Chloride 0.9% 1, 400 400 000 ml @ 50 mls/hr IV . Q20H [facility] Rx#:[id number] Oral 480 Output: Urine 700 500 Other: Voiding Method Urinal Urinal # Voids 1 - Exam Pleasant 63-year-old male not currently distressed postoperatively adequate pain control HEENT: Anicteric conjunctiva are pink and moist nasal mucosa grossly intact without significant lesions, there is no thrush. Bilateral cochlear implants, speech recognition is quite good Neck: The neck is supple without significant lymphadenopathy or thyromegaly. Lungs: Good bilateral air entry without significant crackles or wheezing. There is no significant bronchial sounds. There is no egophony or dullness. Heart: Irregular with a positive S4. There is no significant murmur click or r ub, PMI was nondisplaced. Abdomen: Obese, Positive bowel sounds soft and nontender without palpable masses or organomegaly. There was no guarding or rebound. Extremities: The upper extremities have excellent pulses they are symmetric, no significant petechiae or telangiectasia. No splinter hemorrhages were noted. The right lower extremity has no lesions. Left leg The bulky dressing is removed. Dressing is in place in the anterior aspect of the knee that is dry. The swelling to the knee joint and abnormal color has improved since surgery. No bleeding is noted on the dressing. There is no erythema above or below the knee that can be visualized. There is no significant inguinal lymphadenopathy. No other lymphadenopathy is noted. Neuro: Awake alert oriented to person place and time. He has a cranial nerve VIII defects bilaterally but there are no new acute gross focal sensory motor deficits - Labs CBC & Chem 7: 04/01/19 07:17 03/31/19 09:02 Labs: Abnormal Lab Results - Last 24 Hours (Table) 04/01/19 04/01/19 04/01/19 Range/Units 07:17 07:17 07:17 WBC 12.9 H (3.8-10.6) k/uL RBC 4.22 L (4.30-5.90) m/uL Hgb 12.7 L (13.0-17.5) gm/dL Neutrophils # 10.6 H (1.3-7.7) k/uL ESR 36 H (0-15) mm/hr C-Reactive Protein 50.9 H (<10.0) mg/L Prealbumin 16.0 L (18.0-42.0) mg/dL Microbiology - Last 24 Hours (Table) 03/31/19 15:06 Gram Stain - Preliminary Knee - Left Wound Culture - Preliminary 03/31/19 15:06 Gram Stain - Preliminary Knee - Left Wound Culture - Preliminary 03/31/19 12:12 Blood Culture - Preliminary Blood No Growth after 24 hours 03/31/19 15:06 Anaerobic Culture - Preliminary Knee - Left 03/31/19 15:06 Anaerobic Culture - Preliminary Knee - Left Laboratory Results WBC 12.9 k/uL (3.8-10.6) H 04/01/19 07:17 RBC 4.22 m/uL (4.30-5.90) L 04/01/19 07:17 Hgb 12.7 gm/dL (13.0-17.5) L 04/01/19 07:17 Hct 40.2 % (39.0-53.0) 04/01/19 07:17 MCV 95.2 fL (80.0-100.0) 04/01/19 07:17 MCH 30.2 pg (25.0-35.0) 04/01/19 07:17 MCHC 31.7 g/dL (31.0-37.0) 04/01/19 07:17 RDW 14.9 % (11.5-15.5) 04/01/19 07:17 Plt Count 378 k/uL (150-450) 04/01/19 07:17 Neutrophils % 82 % 04/01/19 07:17 Lymphocytes % 8 % 04/01/19 07:17 Monocytes % 7 % 04/01/19 07:17 Eosinophils % 1 % 04/01/19 07:17 Basophils % 1 % 04/01/19 07:17 Neutrophils # 10.6 k/uL (1.3-7.7) H 04/01/19 07:17 Lymphocytes # 1.1 k/uL (1.0-4.8) 04/01/19 07:17 Monocytes # 0.9 k/uL (0-1.0) 04/01/19 07:17 Eosinophils # 0.1 k/uL (0-0.7) 04/01/19 07:17 Basophils # 0.1 k/uL (0-0.2) 04/01/19 07:17 ESR 36 mm/hr (0-15) H 04/01/19 07:17 PT 11.0 sec (9.0-12.0) 04/01/19 07:17 INR 1.0 (<1.2) 04/01/19 07:17 Sodium 136 mmol/L (137-145) L 03/31/19 09:02 Potassium 4.7 mmol/L (3.5-5.1) 03/31/19 09:02 Chloride 99 mmol/L (98-107) 03/31/19 09:02 Carbon Dioxide 26 mmol/L (22-30) 03/31/19 09:02 Anion Gap 11 mmol/L 03/31/19 09:02 BUN 21 mg/dL (9-20) H 03/31/19 09:02 Creatinine 0.90 mg/dL (0.66-1.25) 03/31/19 09:02 Est GFR (CKD-EPI)AfAm >90 (>60 ml/min/1.73 sqM) 03/31/19 09:02 Est GFR (CKD-EPI)NonAf 89 (>60 ml/min/1.73 sqM) 03/31/19 09:02 Glucose 101 mg/dL (74-99) H 03/31/19 09:02 Calcium 9.8 mg/dL (8.4-10.2) 03/31/19 09:02 Total Bilirubin 1.6 mg/dL (0.2-1.3) H 03/31/19 09:02 AST 31 U/L (17-59) 03/31/19 09:02 ALT 33 U/L (21-72) 03/31/19 09:02 Alkaline Phosphatase 73 U/L (38-126) 03/31/19 09:02 C-Reactive Protein 50.9 mg/L (<10.0) H 04/01/19 07:17 Total Protein 6.6 g/dL (6.3-8.2) 03/31/19 09:02 Albumin 3.7 g/dL (3.5-5.0) 03/31/19 09:02 Prealbumin 16.0 mg/dL (18.0-42.0) L 04/01/19 07:17 Microbiology 03/31/19 15:06 Knee - Left Gram Stain - Preliminary 03/31/19 15:06 Knee - Left Wound Culture - Preliminary 03/31/19 15:06 Knee - Left Gram Stain - Preliminary 03/31/19 15:06 Knee - Left Wound Culture - Preliminary 03/31/19 12:12 Blood Blood Culture - Preliminary No Growth after 24 hours 03/31/19 15:06 Knee - Left Anaerobic Culture - Preliminary 03/31/19 15:06 Knee - Left Anaerobic Culture - Preliminary Assessment and Plan (1) Osteoarthritis of left knee Current Visit: No Status: Acute Code(s): M17.12 - UNILATERAL PRIMARY OSTEOARTHRITIS, LEFT KNEE SNOMED Code(s): 264670894164875 (2) Infection of prosthetic left knee joint Narrative/Plan: 63-year-old male who has a history of injury in the with resultant deafness and has had some progressive degenerative joint disease and is undergoing a left total knee arthroplasty. He does relate to prior arthroscopic repairs in the past. He was doing well medially postoperatively but concerned had increasing amounts of swelling and decreasing range of motion. He was sent to see his physician by the physical therapist was not evidence of significant swelling to the knee with discoloration. Counseling is now taking the operating room and the incision and drainage to the site was performed, lavage and exchange of polyethylene occurred. Deep cultures have been obtained, antibiotic therapy was held preoperatively to help with surgical cultures. Vancomycin has been ordered, will consider addition of rifampin also but there are concerns given his underlying cardiac disease. Cultures will help further delineate the course of antibiotic therapy. IV access will be requested in the from of the PICC line. Baseline laboratories requested. 04/01/2019 the patient is starting to feel somewhat better now that he is postoperative in the swelling and pain to the knee is starting to improve. He i s tolerating current antibiotic therapy well with vancomycin. Orders are sent to the [place] PICC line has been placed for his outpatient intravenous antibiotic therapy. Cultures are process which may further alter antibiotic choice but at this point in time vancomycin will be utilized. Case is discussed with Dr. Hodge. Current Visit: Yes Status: Acute Code(s): T84.54XA - INFECT/INFLM REACTION DUE TO INTERNAL LEFT KNEE PROSTH, INIT SNOMED Code(s): 099137619
[2019-04-02] MEDS: HYDROmorphone 1 MG/ML 1 ML SYRINGE IVP PRN ×3 (00:58→19:36)
[2019-04-02] MEDS: SODIUM CHLORIDE 0.9% 1,000 ML IV SCH (03:46)
[2019-04-02 06:59] LABS: African American GFR (CKD) >90 (>60 ml/min/1.73 sqM)
[2019-04-02] MEDS ORDERED: VANCOMYCIN TROUGH DUE 1 EACH MISC MISCELLANE ONE (07:00)
[2019-04-02] MEDS: HYDROcodone/APAP 7.5-325MG 1 EACH TAB PO PRN (07:46)
[2019-04-02] MEDS: VANCOMYCIN 1,750 MG in SODIUM CHLORIDE 0.9% 500 ML 500 ML IVPB SCH ×2 (07:46→19:37)
[2019-04-02] MEDS: ENOXAPARIN 30 MG/0.3 ML SYRINGE SQ SCH ×2 (09:36→20:26)
[2019-04-02] MEDS: LORATADINE 10 MG TAB PO SCH (09:36)
[2019-04-02] MEDS: FLUTICASONE 50MCG/SPRAY NASAL 16GM EA NOSTRIL SCH ×2 (09:36→20:27)
[2019-04-02] MEDS: SPIRONOLACTONE 25 MG TAB PO SCH (09:37)
[2019-04-02] MEDS: DOCUSATE 100 MG CAP PO SCH (09:37)
[2019-04-02] MEDS: LISINOPRIL 20 MG TAB PO SCH (09:37)
[2019-04-02] MEDS: NAPROXEN 250 MG TAB PO SCH ×2 (09:37→20:26)
--- NOTE | 2019-04-02 12:09 | P.PN ---
Progress Note - Text Progress Note Date: 04/02/19 Patient seen sitting in chair. He states his knee feels better today. He has been weightbearing as tolerated with his walker. Incision stable. Diminished erythema. Manjit Homans are both negative. Distal neurovascular exam is intact. Impression: Status post left knee arthrotomy with polyethylene exchange, irrigation and implantation antibiotic seeds Plan: Continue IV antibiotics per infectious disease Medical management DVT prophylaxis Discharge planning
--- NOTE | 2019-04-02 18:29 | P.PN ---
Subjective Progress Note Date: 04/01/19 Principal diagnosis: Infected left total knee arthroplasty Patient is a 63-year-old male with a known history of hypertension, hyperlipidemia, GERD, atrial fibrillation paroxysmal, degenerative joint disease and hypertrophic cardiomyopathy in 2018 History of AICD placement who underwent left total knee arthroplasty recently came to the hospital with the complaints of swelling, pain and erythema of the left knee and stiffness. Left knee prosthetic infection was suspected. Patient was taken to or for left knee although coming with irrigation and insertion of antibiotic beads. Vancomycin was held until surgery and cultures were obtained. ID is following. 04/01/2019 Patient says that his leg swelling and stiffness is better. Able to flex better. Otherwise patient is being continued on antibiotics in the form of vancomycin. ID is following. PICC line was obtained. Currently being continued on pain medications and follow up culture reports. Patient has been afebrile otherwise. No complaints of chest pain or shortness of breath. No nausea vomiting or abdominal pain. current medications reviewed. Objective - Vital Signs Vital signs: Vital Signs Temp 98.4 F 04/01/19 14:20 Pulse 98 04/01/19 14:20 Resp 16 04/01/19 14:20 BP 141/78 04/01/19 14:20 Pulse Ox 96 04/01/19 14:20 Intake & Output 04/01/19 04/01/19 04/02/19 06:59 18:59 06:59 Intake Total 480 400 Output Total 700 500 Balance -220 -100 Intake: IV 400 Sodium Chloride 0.9% 1, 400 000 ml @ 50 mls/hr IV . Q20H [facility] Rx#:[id number] Oral 480 Output: Urine 700 500 Other: Voiding Method Urinal # Voids 1 - Exam PHYSICAL EXAMINATION: Patient is lying in the bed comfortably, no acute distress, awake alert and oriented.. HEENT: Normocephalic. Neck is supple. Pupils reactive. Nostrils clear. Oral cavity is moist. Ears reveal no drainage. Neck reveals no JVD, carotid bruits, or thyromegaly. CHEST EXAMINATION: Trachea is central. Symmetrical expansion. Lung guaman clear to auscultation and percussion. CARDIAC: Normal S1, S2 with no gallops. No murmurs ABDOMEN: Soft. Bowel sounds normal. No organomegaly. No abdominal bruits. Extremities: reveal no edema. No clubbing or cyanosis Neurologically awake, alert, oriented x3 with well-coordinated movements. No focal deficits noted Skin: No rash or skin lesions. Psychiatric: Coperative. Nonsuicidal Musculoskeletal: No joint swelling or deformity. Left knee swelling with redness and tender to palpation. Drain present.. - Labs CBC & Chem 7: 04/01/19 07:17 04/02/19 06:37 Labs: Abnormal Lab Results - Last 24 Hours (Table) 04/01/19 04/01/19 Range/Units 07:17 07:17 WBC 12.9 H (3.8-10.6) k/uL RBC 4.22 L (4.30-5.90) m/uL Hgb 12.7 L (13.0-17.5) gm/dL Neutrophils # 10.6 H (1.3-7.7) k/uL ESR 36 H (0-15) mm/hr C-Reactive Protein 50.9 H (<10.0) mg/L Microbiology - Last 24 Hours (Table) 03/31/19 12:12 Blood Culture - Preliminary Blood No Growth after 24 hours 03/31/19 15:06 Gram Stain - Preliminary Knee - Left Wound Culture - Preliminary 03/31/19 15:06 Gram Stain - Preliminary Knee - Left Wound Culture - Preliminary 03/31/19 15:06 Anaerobic Culture - Preliminary Knee - Left 03/31/19 15:06 Anaerobic Culture - Preliminary Knee - Left Assessment and Plan Assessment: Left knee prosthetic joint infection Status post left knee arthrotomy with polyethylene exchange, irrigation and implantation antibiotic seeds Recent total knee arthroplasty left Paroxysmal atrial fibrillation. Currently on xarelto at home. On hold now. Restart once cleared by surgery. GERD Hypertension Hyperlipidemia D Underwood joint disease Obstructive sleep apnea Hypertrophic cardio myopathy diagnosed in 2018 History of AICD placement Chronic CHF with systolic dysfunction Hiatal hernia PTSD DVT prophylaxis. Currently on Lovenox and Plan: Patient will be continued on pain management. Continue with antibiotics in the form of vancomycin as per ID recommendations. Follow-up culture reports. PICC line was placed. Xarelto will be restarted once cleared by orthopedic surgery. Continue the home medications and further conditions based on the clinical course. Prognosis is guarded. Time with Patient: Greater than 30
[2019-04-02] MEDS: ATORVASTATIN 10 MG TAB PO SCH (20:26)
[2019-04-02] MEDS: SENNOSIDES-DOCUSATE SODIUM 1 EACH TAB PO SCH (20:27)
[2019-04-03] MEDS: SODIUM CHLORIDE 0.9% 1,000 ML IV SCH ×2 (01:05→20:17)
[2019-04-03] MEDS: HYDROmorphone 1 MG/ML 1 ML SYRINGE IVP PRN ×5 (01:39→22:11)
[2019-04-03] MEDS: HYDROcodone/APAP 7.5-325MG 1 EACH TAB PO PRN ×2 (03:49→20:15)
[2019-04-03 06:57] LABS: Basophils # (A) 0.1 k/uL (0-0.2); Basophils % (A) 1 %; Eosinophils # (A) 0.3 k/uL (0-0.7); Eosinophils % (A) 3 %; HCT 38.3 % (39.0-53.0); HGB 12.9 gm/dL (13.0-17.5); Lymphocytes # (A) 1.2 k/uL (1.0-4.8); Lymphocytes % (A) 11 %; MCH 32.1 pg (25.0-35.0); MCHC 33.5 g/dL (31.0-37.0); MCV 95.8 fL (80.0-100.0); Mean Platelet Volume 5.5; Monocytes # (A) 0.7 k/uL (0-1.0); Monocytes % (A) 7 %; Neutrophils % (A) 77 %; Platelet Count 330 k/uL (150-450); RDW 14.6 % (11.5-15.5); WBC 10.4 k/uL (3.8-10.6)
[2019-04-03] MEDS: VANCOMYCIN 1,750 MG in SODIUM CHLORIDE 0.9% 500 ML 500 ML IVPB SCH ×2 (08:26→20:16)
[2019-04-03] MEDS: FLUTICASONE 50MCG/SPRAY NASAL 16GM EA NOSTRIL SCH ×2 (09:48→20:16)
[2019-04-03] MEDS: ENOXAPARIN 30 MG/0.3 ML SYRINGE SQ SCH ×2 (09:48→20:16)
[2019-04-03] MEDS: NAPROXEN 250 MG TAB PO SCH ×2 (09:48→20:14)
[2019-04-03] MEDS: LISINOPRIL 20 MG TAB PO SCH (09:48)
[2019-04-03] MEDS: SPIRONOLACTONE 25 MG TAB PO SCH (09:48)
[2019-04-03] MEDS: LORATADINE 10 MG TAB PO SCH (09:48)
[2019-04-03] MEDS: DOCUSATE 100 MG CAP PO SCH (09:48)
--- NOTE | 2019-04-03 11:42 | P.PN ---
Progress Note - Text Progress Note Date: 04/03/19 Patient seen resting in bed comfortably. He states his knee feels better today. He has been up and ambulating. He states he is not able to bend his knee. Incision stable. Distal neurovascular exam intact. Homans and Manjit are both negative. Impression: Status post left knee arthrotomy with polyethylene exchange irrigation and placement of antibiotic seeds Plan: Antibiotics as per infectious disease Medical management DVT prophylaxis Physical therapy
[2019-04-03] MEDS: SENNOSIDES-DOCUSATE SODIUM 1 EACH TAB PO SCH (20:14)
[2019-04-03] MEDS: ATORVASTATIN 10 MG TAB PO SCH (20:15)
--- NOTE | 2019-04-04 00:14 | P.PN ---
Subjective Progress Note Date: 04/02/19 Principal diagnosis: Infected left total knee arthroplasty Patient is a 63-year-old male with a known history of hypertension, hyperlipidemia, GERD, atrial fibrillation paroxysmal, degenerative joint disease and hypertrophic cardiomyopathy in 2018 History of AICD placement who underwent left total knee arthroplasty recently came to the hospital with the complaints of swelling, pain and erythema of the left knee and stiffness. Left knee prosthetic infection was suspected. Patient was taken to or for left knee although coming with irrigation and insertion of antibiotic beads. Vancomycin was held until surgery and cultures were obtained. ID is following. 04/01/2019 Patient says that his leg swelling and stiffness is better. Able to flex better. Otherwise patient is being continued on antibiotics in the form of vancomycin. ID is following. PICC line was obtained. Currently being continued on pain medications and follow up culture reports. Patient has been afebrile otherwise. No complaints of chest pain or shortness of breath. No nausea vomiting or abdominal pain. 04.02.2019 Patient denied any complaints of chest pain or shortness of breath. Left knee pain is better and is able to bear weight. Continued on IV antibiotics. ID is following. current medications reviewed. Objective - Vital Signs Vital signs: Vital Signs Temp 98.2 F 04/02/19 15:00 Pulse 92 04/02/19 15:53 Resp 17 04/02/19 15:53 BP 104/68 04/02/19 15:00 Pulse Ox 95 04/02/19 15:00 Intake & Output 04/01/19 04/02/19 04/02/19 18:59 06:59 18:59 Intake Total 325 566 3885 Output Total 500 500 Balance -100 400 880 Intake: IV 400 400 400 Sodium Chloride 0.9% 1, 400 400 400 000 ml @ 50 mls/hr IV . Q20H [facility] Rx#:[id number] Intake, IV Titration 500 Amount Vancomycin 1,750 mg In 500 Sodium Chloride 0.9% 500 ml 500 ml @ 167 mls/hr IVPB Q12H [facility] Rx#: [id number] Oral 480 Output: Urine 500 500 Other: Voiding Method Urinal Urinal # Voids 775 3 - Exam PHYSICAL EXAMINATION: Patient is lying in the bed comfortably, no acute distress, awake alert and oriented.. HEENT: Normocephalic. Neck is supple. Pupils reactive. Nostrils clear. Oral cavity is moist. Ears reveal no drainage. Neck reveals no JVD, carotid bruits, or thyromegaly. CHEST EXAMINATION: Trachea is central. Symmetrical expansion. Lung guaman clear to auscultation and percussion. CARDIAC: Normal S1, S2 with no gallops. No murmurs ABDOMEN: Soft. Bowel sounds normal. No organomegaly. No abdominal bruits. Extremities: reveal no edema. No clubbing or cyanosis Neurologically awake, alert, oriented x3 with well-coordinated movements. No focal deficits noted Skin: No rash or skin lesions. Psychiatric: Coperative. Nonsuicidal Musculoskeletal: No joint swelling or deformity. Left knee swelling with redness and tender to palpation. Drain present.. - Labs CBC & Chem 7: 04/03/19 06:37 04/02/19 06:37 Labs: Abnormal Lab Results - Last 24 Hours (Table) 04/01/19 Range/Units 07:17 Prealbumin 16.0 L (18.0-42.0) mg/dL Microbiology - Last 24 Hours (Table) 03/31/19 12:12 Blood Culture - Preliminary Blood No Growth after 48 hours 03/31/19 15:06 Gram Stain - Preliminary Knee - Left Wound Culture - Preliminary 03/31/19 15:06 Gram Stain - Preliminary Knee - Left Wound Culture - Preliminary Assessment and Plan Assessment: Left knee prosthetic joint infection Status post left knee arthrotomy with polyethylene exchange, irrigation and implantation antibiotic seeds Recent total knee arthroplasty left Paroxysmal atrial fibrillation. Currently on xarelto at home. On hold now. Restart once cleared by surgery. GERD Hypertension Hyperlipidemia D Underwood joint disease Obstructive sleep apnea Hypertrophic cardio myopathy diagnosed in 2018 History of AICD placement Chronic CHF with systolic dysfunction Hiatal hernia PTSD DVT prophylaxis. Currently on Lovenox and Plan: Patient will be continued on pain management. Continue with antibiotics in the form of vancomycin as per ID recommendations. Follow-up culture reports. PICC line was placed. Xarelto will be restarted once cleared by orthopedic surgery. Continue the home medications and further conditions based on the clinical course. Prognosis is guarded. Time with Patient: Greater than 30
--- NOTE | 2019-04-04 00:17 | P.PN ---
Subjective Progress Note Date: 04/03/19 Principal diagnosis: Infected left total knee arthroplasty Patient is a 63-year-old male with a known history of hypertension, hyperlipidemia, GERD, atrial fibrillation paroxysmal, degenerative joint disease and hypertrophic cardiomyopathy in 2018 History of AICD placement who underwent left total knee arthroplasty recently came to the hospital with the complaints of swelling, pain and erythema of the left knee and stiffness. Left knee prosthetic infection was suspected. Patient was taken to or for left knee although coming with irrigation and insertion of antibiotic beads. Vancomycin was held until surgery and cultures were obtained. ID is following. 04/01/2019 Patient says that his leg swelling and stiffness is better. Able to flex better. Otherwise patient is being continued on antibiotics in the form of vancomycin. ID is following. PICC line was obtained. Currently being continued on pain medications and follow up culture reports. Patient has been afebrile otherwise. No complaints of chest pain or shortness of breath. No nausea vomiting or abdominal pain. 04.02.2019 Patient denied any complaints of chest pain or shortness of breath. Left knee pain is better and is able to bear weight. Continued on IV antibiotics. ID is following. 04/03/2090 Currently lying in the bed comfortably. Patient denied any complaints of chest pain or shortness of breath. Patient is able to ambulate and is able to bear weight on the left leg slowly. Still having some stiffness of the left knee. Swelling and redness is much improved. Currently time being continued on IV antibiotics in form of vancomycin. ID is following and patient will need IV ant ibiotics upon discharge. Leukocytosis resolved. current medications reviewed. Active Medications Hydrocodone Bitart/Acetaminophen ([place] 7.5-325) 1 - 2 each PO Q6HR PRN PRN Reason: Pain Last Admin: 04/03/19 20:15 Dose: 2 each Documented by: Atorvastatin Calcium (Lipitor) 10 mg PO HS [facility] Last Admin: 04/03/19 20:15 Dose: 10 mg Documented by: Docusate Sodium (Colace) 100 mg PO DAILY [facility] Last Admin: 04/03/19 09:48 Dose: 100 mg Documented by: Enoxaparin Sodium (Lovenox) 30 mg SQ Q12HR [facility] Last Admin: 04/03/19 20:16 Dose: 30 mg Documented by: Fluticasone Propionate (Flonase Nasal Hermann) 1 spray EA NOSTRIL BID [facility] Last Admin: 04/03/19 20:16 Dose: 1 spray Documented by: Hydromorphone HCl (Dilaudid) 1 mg IVP Q3HR PRN PRN Reason: Pain Scale 7 to 10 Last Admin: 04/03/19 22:11 Dose: 1 mg Documented by: Hydromorphone HCl (Dilaudid) 0.5 mg IVP Q3HR PRN PRN Reason: Pain Scale 4 to 6 Hydromorphone HCl (Dilaudid) 0.25 mg IVP Q3HR PRN PRN Reason: Pain Scale 1 to 3 Sodium Chloride (Saline 0.9%) 1,000 mls @ 50 mls/hr IV .Q20H [facility] Last Admin: 04/03/19 20:17 Dose: 50 mls/hr Documented by: Vancomycin HCl 1,750 mg/ (Sodium Chloride) 500 mls @ 167 mls/hr IVPB Q12H [facility] Last Admin: 04/03/19 20:16 Dose: 167 mls/hr Documented by: Lisinopril (Zestril) 20 mg PO DAILY [facility] Last Admin: 04/03/19 09:48 Dose: 20 mg Documented by: Loratadine (Claritin) 10 mg PO DAILY [facility] Last Admin: 04/03/19 09:48 Dose: 10 mg Documented by: Miscellaneous Information (Vancomycin Trough Due) 0 each MISCELLANE DIRECTED ONE Stop: 04/04/19 07:01 Naloxone HCl (Narcan) 0.2 mg IV Q2M PRN PRN Reason: Opioid Reversal Naproxen (Naprosyn) 500 mg PO Q12HR [facility] Last Admin: 04/03/19 20:14 Dose: 500 mg Documented by: Ondansetron HCl (Zofran) 4 mg IVP Q8HR PRN PRN Reason: Nausea And Vomiting Senna/Docusate Sodium (Senokot-S) 2 each PO HS [facility] Last Admin: 04/03/19 20:14 Dose: 2 each Documented by: Sodium Chloride (Saline Flush) 10 ml IV Q4HR PRN PRN Reason: PICC Line Sodium Chloride (Saline Flush) 10 ml IV WEEKLY [facility] Sodium Chloride (Saline Flush) 20 ml IV Q4HR PRN PRN Reason: PICC Line Spironolactone (Aldactone) 25 mg PO DAILY [facility] Last Admin: 04/03/19 09:48 Dose: 25 mg Documented by: Objective - Vital Signs Vital signs: Vital Signs Temp 97.9 F 04/03/19 18:58 Pulse 80 04/03/19 18:58 Resp 16 04/03/19 18:58 BP 138/76 04/03/19 18:58 Pulse Ox 98 04/03/19 18:58 Intake & Output 04/03/19 04/03/19 04/04/19 06:59 18:59 06:59 Intake Total 1980 250 Output Total 450 300 Balance -450 1979 Intake: Intake, IV Titration 900 Amount Sodium Chloride 0.9% 1, 400 000 ml @ 50 mls/hr IV . Q20H [facility] Rx#:[id number] Vancomycin 1,750 mg In 500 Sodium Chloride 0.9% 500 ml 500 ml @ 167 mls/hr IVPB Q12H [facility] Rx#: [id number] Oral 1080 250 Output: Urine 450 300 Other: Voiding Method Toilet Urinal # Voids 2 2 1 - Exam PHYSICAL EXAMINATION: Patient is lying in the bed comfortably, no acute distress, awake alert and oriented.. HEENT: Normocephalic. Neck is supple. Pupils reactive. Nostrils clear. Oral cavity is moist. Ears reveal no drainage. Neck reveals no JVD, carotid bruits, or thyromegaly. CHEST EXAMINATION: Trachea is central. Symmetrical expansion. Lung guaman clear to auscultation and percussion. CARDIAC: Normal S1, S2 with no gallops. No murmurs ABDOMEN: Soft. Bowel sounds normal. No organomegaly. No abdominal bruits. Extremities: reveal no edema. No clubbing or cyanosis Neurologically awake, alert, oriented x3 with well-coordinated movements. No focal deficits noted Skin: No rash or skin lesions. Psychiatric: Coperative. Nonsuicidal Musculoskeletal: No joint swelling or deformity. Left knee swelling with redness and tender to palpation. Drain present.. - Labs CBC & Chem 7: 04/03/19 06:37 04/02/19 06:37 Labs: Abnormal Lab Results - Last 24 Hours (Table) 04/03/19 Range/Units 06:37 RBC 4.00 L (4.30-5.90) m/uL Hgb 12.9 L (13.0-17.5) gm/dL Hct 38.3 L (39.0-53.0) % Neutrophils # 8.0 H (1.3-7.7) k/uL Microbiology - Last 24 Hours (Table) 03/31/19 12:12 Blood Culture - Preliminary Blood No Growth after 72 hours 03/31/19 15:06 Anaerobic Culture - Preliminary Knee - Left 03/31/19 15:06 Anaerobic Culture - Preliminary Knee - Left Assessment and Plan Assessment: Left knee prosthetic joint infection Status post left knee arthrotomy with polyethylene exchange, irrigation and implantation antibiotic seeds Recent total knee arthroplasty left Paroxysmal atrial fibrillation. Currently on xarelto at home. On hold now. Restart once cleared by surgery. GERD Hypertension Hyperlipidemia D [place] joint disease Obstructive sleep apnea Hypertrophic cardio myopathy diagnosed in 2018 History of AICD placement Chronic CHF with systolic dysfunction Hiatal hernia PTSD DVT prophylaxis. Currently on Lovenox and Plan: Patient will be continued on pain management. Continue with antibiotics in the form of vancomycin as per ID recommendations. Follow-up culture reports. PICC line was placed. Xarelto will be restarted once cleared by orthopedic surgery. Continue the home medications and further conditions based on the clinical course. Prognosis is guarded. Time with Patient: Greater than 30
[2019-04-04] MEDS: HYDROmorphone 1 MG/ML 1 ML SYRINGE IVP PRN ×4 (01:49→22:51)
[2019-04-04] MEDS: HYDROcodone/APAP 7.5-325MG 1 EACH TAB PO PRN ×3 (04:37→18:07)
[2019-04-04] MEDS ORDERED: VANCOMYCIN TROUGH DUE 1 EACH MISC MISCELLANE ONE (07:00)
[2019-04-04 07:14] LABS: Basophils # (A) 0.1 k/uL (0-0.2); Basophils % (A) 1 %; Eosinophils # (A) 0.4 k/uL (0-0.7); Eosinophils % (A) 4 %; HCT 39.8 % (39.0-53.0); Hypochromasia Slight; Lymphocytes # (A) 1.1 k/uL (1.0-4.8); Lymphocytes % (A) 10 %; MCH 31.3 pg (25.0-35.0); MCHC 32.6 g/dL (31.0-37.0); MCV 95.9 fL (80.0-100.0); Mean Platelet Volume 5.4; Monocytes # (A) 0.7 k/uL (0-1.0); Monocytes % (A) 6 %; Neutrophils # (A) 8.4 k/uL (1.3-7.7); Neutrophils % (A) 78 %; Platelet Count 386 k/uL (150-450); RBC 4.15 m/uL (4.30-5.90); RDW 14.5 % (11.5-15.5); WBC 10.8 k/uL (3.8-10.6)
[2019-04-04 07:27] LABS: African American GFR (CKD) >90 (>60 ml/min/1.73 sqM); Anion Gap 10 mmol/L; Blood Urea Nitrogen 20 mg/dL (9-20); Calcium 10.5 mg/dL (8.4-10.2); Carbon Dioxide 27 mmol/L (22-30); Chloride 99 mmol/L (98-107); Glucose 105 mg/dL (74-99); Potassium 4.6 mmol/L (3.5-5.1); Sodium 136 mmol/L (137-145)
[2019-04-04] MEDS: VANCOMYCIN 1,750 MG in SODIUM CHLORIDE 0.9% 500 ML 500 ML IVPB SCH (08:22)
[2019-04-04] MEDS: NAPROXEN 250 MG TAB PO SCH ×2 (08:25→20:37)
[2019-04-04] MEDS: SPIRONOLACTONE 25 MG TAB PO SCH (08:26)
[2019-04-04] MEDS: DOCUSATE 100 MG CAP PO SCH (08:26)
[2019-04-04] MEDS: LISINOPRIL 20 MG TAB PO SCH (08:26)
[2019-04-04] MEDS: FLUTICASONE 50MCG/SPRAY NASAL 16GM EA NOSTRIL SCH ×2 (08:26→20:41)
[2019-04-04] MEDS: ENOXAPARIN 30 MG/0.3 ML SYRINGE SQ SCH ×2 (08:26→20:37)
[2019-04-04] MEDS: LORATADINE 10 MG TAB PO SCH (08:26)
--- NOTE | 2019-04-04 14:58 | P.PN ---
Subjective Progress Note Date: 04/04/19 Principal diagnosis: s/p left knee arthrotomy, irrigation with polyethylene liner exchange and abx bead placement Patient doing well, no fever or chills Objective - Vital Signs Vital signs: Vital Signs Temp 98.3 F 04/04/19 14:41 Pulse 77 04/04/19 14:41 Resp 17 04/04/19 14:41 BP 119/68 04/04/19 14:41 Pulse Ox 96 04/04/19 14:41 Intake & Output 04/03/19 04/04/19 04/04/19 18:59 06:59 18:59 Intake Total 9784 182 9077 Output Total 1200 730 Balance 1980 -470 409 Intake: IV 400 Sodium Chloride 0.9% 1, 400 000 ml @ 50 mls/hr IV . Q20H [facility] Rx#:[id number] Intake, IV Titration 900 Amount Sodium Chloride 0.9% 1, 400 000 ml @ 50 mls/hr IV . Q20H [facility] Rx#:[id number] Vancomycin 1,750 mg In 500 Sodium Chloride 0.9% 500 ml 500 ml @ 167 mls/hr IVPB Q12H [facility] Rx#: [id number] Oral 1080 730 739 Output: Urine 1200 730 Other: Voiding Method Toilet Toilet Urinal Urinal # Voids 2 2 - Exam Left lower extremity: Mild ecchymosis present, mark in good condition and position, no drainage. Distal neurovascular exam intact - Labs CBC & Chem 7: 04/04/19 06:57 04/04/19 06:57 Labs: Abnormal Lab Results - Last 24 Hours (Table) 04/04/19 04/04/19 Range/Units 06:57 06:57 WBC 10.8 H (3.8-10.6) k/uL RBC 4.15 L (4.30-5.90) m/uL Neutrophils # 8.4 H (1.3-7.7) k/uL Sodium 136 L (137-145) mmol/L Glucose 105 H (74-99) mg/dL Calcium 10.5 H (8.4-10.2) mg/dL Microbiology - Last 24 Hours (Table) 03/31/19 12:12 Blood Culture - Preliminary Blood No Growth after 96 hours Assessment and Plan Plan: Assessment: s/p left knee arthrotomy with irrigation,polyethylene liner exchange and abx bead placement Plan: Daily dressing changes/ice and elevate DVT prophylaxis Other medical specialty recommendations Plan for discharge tomorrow Time with Patient: Less than 30
[2019-04-04] MEDS: SODIUM CHLORIDE 0.9% 1,000 ML IV SCH (18:03)
[2019-04-04] MEDS: VANCOMYCIN 1,500 MG in SODIUM CHLORIDE 0.9% 250 ML IVPB SCH (20:37)
[2019-04-04] MEDS: ATORVASTATIN 10 MG TAB PO SCH (20:37)
[2019-04-04] MEDS: SENNOSIDES-DOCUSATE SODIUM 1 EACH TAB PO SCH (20:38)
--- NOTE | 2019-04-04 22:06 | P.PN ---
Subjective Progress Note Date: 04/04/19 63-year-old male who presents to Hospital for surgical intervention into his left knee. 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 The patient also has a history of hypertrophic cardiomyopathy, and underwent surgical correction at the [facility], also has cardiac dysrhythmia and has an AICD in place which replaced a prior pacemaker. His knee continued to bother him and consequently underwent a left total knee arthroplasty. Postoperatively he was progressing well for the first few days. His physical therapist came in house and noticed the leg starting to swell he was having some diminishing range of motion. On a follow-up visit there was no marked change to the leg it was swollen discolored and had poor range of motion. He was sent to his orthopedic surgeon and upon evaluation it appeared there was an acute change in the patient was brought to the hospital for further intervention. Concerns for infection to the left knee arthroplasty that was just placed a consult was requested. Antibiotic therapy had been ordered by the medicine service, however I held that until surgical cultures could be obtained, then vancomycin therapy initiated. Patient is times quite comfortable in the postoperative time frame. He relates before coming to hospital he did feel poorly he thinks he did have a fever and drenching sweats but did not have rigors. He did not note any extensive drainage from the joint. 04/01/2019 the patient is to enhance improvement in his status. He is certainly with less pain. Improved range of motion. Little drainage from the knee. He is not having fevers or chills as he was. 04/04/2019 the patient continues to improve. His pain has improved and he is working with a physical therapist. [facility].he is improved the last 24 hours. Objective - Vital Signs Vital signs: Vital Signs Temp 98.1 F 04/04/19 19:24 Pulse 70 04/04/19 19:24 Resp 16 04/04/19 19:24 BP 128/70 04/04/19 19:24 Pulse Ox 95 04/04/19 19:24 Intake & Output 04/04/19 04/04/19 04/05/19 06:59 18:59 06:59 Intake Total 730 1339 Output Total 1200 1030 Balance -470 309 Intake: IV 400 Sodium Chloride 0.9% 1, 400 000 ml @ 50 mls/hr IV . Q20H [facility] Rx#:[id number] Oral 730 939 Output: Urine 1200 1030 Other: Voiding Method Toilet Urinal # Voids 2 - Exam Pleasant 63-year-old male not currently distressed postoperatively adequate pain control HEENT: Anicteric conjunctiva are pink and moist nasal mucosa grossly intact without significant lesions, there is no thrush. Bilateral cochlear implants, speech recognition is quite good Neck: The neck is supple without significant lymphadenopathy or thyromegaly. Lungs: Good bilateral air entry without significant crackles or wheezing. There is no significant bronchial sounds. There is no egophony or dullness. Heart: Irregular with a positive S4. There is no significant murmur click or rub, PMI was nondisplaced. Abdomen: Obese, Positive bowel sounds soft and nontender without palpable masses or organomegaly. There was no guarding or rebound. Extremities: The upper extremities have excellent pulses they are symmetric, no significant petechiae or telangiectasia. No splinter hemorrhages were noted. The right lower extremity has no lesions. Left leg The bulky dressing is removed. Dressing is in place in the anterior aspect of the knee that is dry. The swelling to the knee joint and abnormal color has improved since surgery. No bleeding is noted on the dressing. There is no erythema above or below the knee that can be visualized. There is no significant inguinal lymphadenopathy. No other lymphadenopathy is noted. Neuro: Awake alert oriented to person place and time. He has a cranial nerve VIII defects bilaterally but there are no new acute gross focal sensory motor deficits - Labs CBC & Chem 7: 04/04/19 06:57 04/04/19 06:57 Labs: Abnormal Lab Results - Last 24 Hours (Table) 04/04/19 04/04/19 Range/Units 06:57 06:57 WBC 10.8 H (3.8-10.6) k/uL RBC 4.15 L (4.30-5.90) m/uL Neutrophils # 8.4 H (1.3-7.7) k/uL Sodium 136 L (137-145) mmol/L Glucose 105 H (74-99) mg/dL Calcium 10.5 H (8.4-10.2) mg/dL Microbiology - Last 24 Hours (Table) 03/31/19 15:06 Anaerobic Culture - Final Knee - Left 03/31/19 12:12 Blood Culture - Preliminary Blood No Growth after 96 hours Laboratory Results WBC 10.8 k/uL (3.8-10.6) H 04/04/19 06:57 RBC 4.15 m/uL (4.30-5.90) L 04/04/19 06:57 Hgb 13.0 gm/dL (13.0-17.5) 04/04/19 06:57 Hct 39.8 % (39.0-53.0) 04/04/19 06:57 MCV 95.9 fL (80.0-100.0) 04/04/19 06:57 MCH 31.3 pg (25.0-35.0) 04/04/19 06:57 MCHC 32.6 g/dL (31.0-37.0) 04/04/19 06:57 RDW 14.5 % (11.5-15.5) 04/04/19 06:57 Plt Count 386 k/uL (150-450) 04/04/19 06:57 Neutrophils % 78 % 04/04/19 06:57 Lymphocytes % 10 % 04/04/19 06:57 Monocytes % 6 % 04/04/19 06:57 Eosinophils % 4 % 04/04/19 06:57 Basophils % 1 % 04/04/19 06:57 Neutrophils # 8.4 k/uL (1.3-7.7) H 04/04/19 06:57 Lymphocytes # 1.1 k/uL (1.0-4.8) 04/04/19 06:57 Monocytes # 0.7 k/uL (0-1.0) 04/04/19 06:57 Eosinophils # 0.4 k/uL (0-0.7) 04/04/19 06:57 Basophils # 0.1 k/uL (0-0.2) 04/04/19 06:57 Hypochromasia Slight 04/04/19 06:57 ESR 36 mm/hr (0-15) H 04/01/19 07:17 PT 11.0 sec (9.0-12.0) 04/01/19 07:17 INR 1.0 (<1.2) 04/01/19 07:17 Sodium 136 mmol/L (137-145) L 04/04/19 06:57 Potassium 4.6 mmol/L (3.5-5.1) 04/04/19 06:57 Chloride 99 mmol/L (98-107) 04/04/19 06:57 Carbon Dioxide 27 mmol/L (22-30) 04/04/19 06:57 Anion Gap 10 mmol/L 04/04/19 06:57 BUN 20 mg/dL (9-20) 04/04/19 06:57 Creatinine 0.93 mg/dL (0.66-1.25) 04/04/19 06:57 Est GFR (CKD-EPI)AfAm >90 (>60 ml/min/1.73 sqM) 04/04/19 06:57 Est GFR (CKD-EPI)NonAf 86 (>60 ml/min/1.73 sqM) 04/04/19 06:57 Glucose 105 mg/dL (74-99) H 04/04/19 06:57 Calcium 10.5 mg/dL (8.4-10.2) H 04/04/19 06:57 Total Bilirubin 1.6 mg/dL (0.2-1.3) H 03/31/19 09:02 AST 31 U/L (17-59) 03/31/19 09:02 ALT 33 U/L (21-72) 03/31/19 09:02 Alkaline Phosphatase 73 U/L (38-126) 03/31/19 09:02 C-Reactive Protein 50.9 mg/L (<10.0) H 04/01/19 07:17 Total Protein 6.6 g/dL (6.3-8.2) 03/31/19 09:02 Albumin 3.7 g/dL (3.5-5.0) 03/31/19 09:02 Prealbumin 16.0 mg/dL (18.0-42.0) L 04/01/19 07:17 Vancomycin Trough 21.0 ug/mL 04/04/19 06:57 Microbiology 03/31/19 15:06 Knee - Left Anaerobic Culture - Final 03/31/19 12:12 Blood Blood Culture - Preliminary No Growth after 96 hours 03/31/19 15:06 Knee - Left Anaerobic Culture - Preliminary 03/31/19 15:06 Knee - Left Gram Stain - Final 03/31/19 15:06 Knee - Left Wound Culture - Final 03/31/19 15:06 Knee - Left Gram Stain - Final 03/31/19 15:06 Knee - Left Wound Culture - Final Assessment and Plan (1) Osteoarthritis of left knee Current Visit: No Status: Acute Code(s): M17.12 - UNILATERAL PRIMARY OSTEOARTHRITIS, LEFT KNEE SNOMED Code(s): 583893944891426 (2) Infection of prosthetic left knee joint Narrative/Plan: 63-year-old male who has a history of injury in the with resultant deafness and has had some progressive degenerative joint disease and is undergoing a left total knee arthroplasty. He does relate to prior arthroscopic repairs in the past. He was doing well medially postoperatively but concerned had increasing amounts of swelling and decreasing range of motion. He was sent to see his physician by the physical therapist was not evidence of significant swelling to the knee with discoloration. Counseling is now taking the operating room and the incision and drainage to the site was performed, lavage and exchange of polyethylene occurred. Deep cultures have been obtained, antibiotic therapy was held preoperatively to help with surgical cultures. Vancomycin has been ordered, will consider addition of rifampin also but there are concerns given his underlying cardiac disease. Cultures will help further delineate the course of antibiotic therapy. IV access will be requested in the from of the PICC line. Baseline laboratories requested. 04/01/2019 the patient is starting to feel somewhat better now that he is postoperative in the swelling and pain to the knee is starting to improve. He is tolerating current antibiotic therapy well with vancomycin. Orders are sent to the [facility] PICC line has been placed for his outpatient intravenous antibiotic therapy. Cultures are process which may further alter antibiotic choice but at this point in time vancomycin will be utilized. Case is discussed with Dr. Hodge. 04/04/2019 the patient is now showing improvement after his surgical debridement. He has with the help of physical therapy been up. Apparently in the next 24 hours he should have authorization for his home and his antibiotic [facility] and will also need home care and home PT. His IV access is in place. Cultures are negative pressure routinely at this stage to surgery a coagulase-negative staph as etiology which is often difficult to isolate. Vancomycin therapy provides adequate treatment.iven the retained prosthetic ateriall will also add rifampin therapy and monitior ESR and CRP which are quite elevated. Current Visit: Yes Status: Acute Code(s): T84.54XA - INFECT/INFLM REACTION DUE TO INTERNAL LEFT KNEE PROSTH, INIT SNOMED Code(s): 604200497
[2019-04-05] MEDS: HYDROcodone/APAP 7.5-325MG 1 EACH TAB PO PRN ×2 (00:29→11:32)
[2019-04-05] MEDS: ENOXAPARIN 30 MG/0.3 ML SYRINGE SQ SCH ×2 (08:09→20:33)
[2019-04-05] MEDS: DOCUSATE 100 MG CAP PO SCH (08:09)
[2019-04-05] MEDS: VANCOMYCIN 1,500 MG in SODIUM CHLORIDE 0.9% 250 ML IVPB SCH ×2 (08:09→20:26)
[2019-04-05] MEDS: LORATADINE 10 MG TAB PO SCH (08:09)
[2019-04-05] MEDS: FLUTICASONE 50MCG/SPRAY NASAL 16GM EA NOSTRIL SCH ×2 (08:09→20:33)
[2019-04-05] MEDS: RIFAMPIN 300 MG CAP PO SCH (08:09)
[2019-04-05] MEDS: LISINOPRIL 20 MG TAB PO SCH (08:09)
[2019-04-05] MEDS: SPIRONOLACTONE 25 MG TAB PO SCH (08:09)
[2019-04-05] MEDS: NAPROXEN 250 MG TAB PO SCH ×2 (08:21→20:33)
[2019-04-05] MEDS: SODIUM CHLORIDE 0.9% 1,000 ML IV SCH (11:33)
--- NOTE | 2019-04-05 19:07 | P.PN ---
Subjective Progress Note Date: 04/05/19 Principal diagnosis: s/p left knee arthrotomy, irrigation with polyethylene liner exchange and abx bead placement Patient doing well, no fever or chills Objective - Vital Signs Vital signs: Vital Signs Temp 98.3 F 04/05/19 15:00 Pulse 85 04/05/19 15:00 Resp 17 04/05/19 15:00 BP 119/68 04/05/19 15:00 Pulse Ox 96 04/05/19 15:00 Intake & Output 04/05/19 04/05/19 04/06/19 06:59 18:59 06:59 Intake Total 1268 Output Total 450 1350 Balance -450 -82 Intake: Intake, IV Titration 750 Amount Sodium Chloride 0.9% 1, 500 000 ml @ 50 mls/hr IV . Q20H [facility] Rx#:[id number] Vancomycin 1,500 mg In 250 Sodium Chloride 0.9% 250 ml @ 125 mls/hr IVPB Q12H [facility] Rx#:[id number] Oral 518 Output: Urine 450 1350 Other: # Voids 1 1 - Exam Left lower extremity: Mild ecchymosis present, mark in good condition and position, no drainage. Distal neurovascular exam intact - Labs CBC & Chem 7: 04/04/19 06:57 04/04/19 06:57 Labs: Microbiology - Last 24 Hours (Table) 03/31/19 12:12 Blood Culture - Preliminary Blood No Growth after 120 hours 03/31/19 15:06 Anaerobic Culture - Final Knee - Left 03/31/19 15:06 Anaerobic Culture - Final Knee - Left Assessment and Plan Plan: Assessment: s/p left knee arthrotomy with irrigation,polyethylene liner exchange and abx bead placement Plan: Daily dressing changes/ice and elevate DVT prophylaxis Other medical specialty recommendations Still [facility] on [facility], hopeful discharge home tomorrow Time with Patient: Less than 30
[2019-04-05] MEDS: SENNOSIDES-DOCUSATE SODIUM 1 EACH TAB PO SCH (20:33)
[2019-04-05] MEDS: ATORVASTATIN 10 MG TAB PO SCH (20:34)
--- NOTE | 2019-04-05 21:26 | P.PN ---
Subjective Progress Note Date: 04/05/19 63-year-old male who presents to Hospital for surgical intervention into his left knee. 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 The patient also has a history of hypertrophic cardiomyopathy, and underwent surgical correction at the [facility], also has cardiac dysrhythmia and has an AICD in place which replaced a prior pacemaker. His knee continued to bother him and consequently underwent a left total knee arthroplasty. Postoperatively he was progressing well for the first few days. His physical therapist came in house and noticed the leg starting to swell he was having some diminishing range of motion. On a follow-up visit there was no marked change to the leg it was swollen discolored and had poor range of motion. He was sent to his orthopedic surgeon and upon evaluation it appeared there was an acute change in the patient was brought to the hospital for further intervention. Concerns for infection to the left knee arthroplasty that was just placed a consult was requested. Antibiotic therapy had been ordered by the medicine service, however I held that until surgical cultures could be obtained, then vancomycin therapy initiated. Patient is times quite comfortable in the postoperative time frame. He relates before coming to hospital he did feel poorly he thinks he did have a fever and drenching sweats but did not have rigors. He did not note any extensive drainage from the joint. 04/01/2019 the patient is to enhance improvement in his status. He is certainly with less pain. Improved range of motion. Little drainage from the knee. He is not having fevers or chills as he was. 04/04/2019 the patient continues to improve. His pain has improved and he is working with a physical therapist. [facility].he is improved the last 24 hours. 04/05/2018 the patient is definitely improved. He has less miserable. Is related is been up with the physical therapist twice through the day walking and doing quite well. He looks forward to [place] approval of his antibiotics and discharge soon. Denies other acute symptoms. Objective - Vital Signs Vital signs: Vital Signs Temp 98.3 F 04/05/19 15:00 Pulse 85 04/05/19 15:00 Resp 17 04/05/19 15:00 BP 119/68 04/05/19 15:00 Pulse Ox 96 04/05/19 15:00 Intake & Output 04/05/19 04/05/19 04/06/19 06:59 18:59 06:59 Intake Total 1268 Output Total 450 1350 Balance -450 -82 Intake: Intake, IV Titration 750 Amount Sodium Chloride 0.9% 1, 500 000 ml @ 50 mls/hr IV . Q20H [facility] Rx#:[id number] Vancomycin 1,500 mg In 250 Sodium Chloride 0.9% 250 ml @ 125 mls/hr IVPB Q12H [facility] Rx#:[id number] Oral 518 Output: Urine 450 1350 Other: # Voids 1 1 - Exam Pleasant 63-year-old male not currently distressed postoperatively adequate pain control HEENT: Anicteric conjunctiva are pink and moist nasal mucosa grossly intact without significant lesions, there is no thrush. Bilateral cochlear implants, speech recognition is quite good Neck: The neck is supple without significant lymphadenopathy or thyromegaly. Lungs: Good bilateral air entry without significant crackles or wheezing. There is no significant bronchial sounds. There is no egophony or dullness. Heart: Irregular with a positive S4. There is no significant murmur click or rub, PMI was nondisplaced. Abdomen: Obese, Positive bowel sounds soft and nontender without palpable masses or organomegaly. There was no guarding or rebound. Extremities: The upper extremities have excellent pulses they are symmetric, no significant petechiae or telangiectasia. No splinter hemorrhages were noted. The right lower extremity has no lesions. Left leg The bulky dressing is removed. Dressing is in place in the anterior aspect of the knee that is dry. The swelling to the knee joint and abnormal color has improved since surgery. No bleeding is noted on the dressing. There is no erythema above or below the knee that can be visualized. There is no significant inguinal lymphadenopathy. No other lymphadenopathy is noted. Neuro: Awake alert oriented to person place and time. He has a cranial nerve VIII defects bilaterally but there are no new acute gross focal sensory motor deficits - Labs CBC & Chem 7: 04/04/19 06:57 04/04/19 06:57 Labs: Microbiology - Last 24 Hours (Table) 03/31/19 12:12 Blood Culture - Preliminary Blood No Growth after 120 hours 03/31/19 15:06 Anaerobic Culture - Final Knee - Left 03/31/19 15:06 Anaerobic Culture - Final Knee - Left Laboratory Results WBC 10.8 k/uL (3.8-10.6) H 04/04/19 06:57 RBC 4.15 m/uL (4.30-5.90) L 04/04/19 06:57 Hgb 13.0 gm/dL (13.0-17.5) 04/04/19 06:57 Hct 39.8 % (39.0-53.0) 04/04/19 06:57 MCV 95.9 fL (80.0-100.0) 04/04/19 06:57 MCH 31.3 pg (25.0-35.0) 04/04/19 06:57 MCHC 32.6 g/dL (31.0-37.0) 04/04/19 06:57 RDW 14.5 % (11.5-15.5) 04/04/19 06:57 Plt Count 386 k/uL (150-450) 04/04/19 06:57 Neutrophils % 78 % 04/04/19 06:57 Lymphocytes % 10 % 04/04/19 06:57 Monocytes % 6 % 04/04/19 06:57 Eosinophils % 4 % 04/04/19 06:57 Basophils % 1 % 04/04/19 06:57 Neutrophils # 8.4 k/uL (1.3-7.7) H 04/04/19 06:57 Lymphocytes # 1.1 k/uL (1.0-4.8) 04/04/19 06:57 Monocytes # 0.7 k/uL (0-1.0) 04/04/19 06:57 Eosinophils # 0.4 k/uL (0-0.7) 04/04/19 06:57 Basophils # 0.1 k/uL (0-0.2) 04/04/19 06:57 Hypochromasia Slight 04/04/19 06:57 ESR 36 mm/hr (0-15) H 04/01/19 07:17 PT 11.0 sec (9.0-12.0) 04/01/19 07:17 INR 1.0 (<1.2) 04/01/19 07:17 Sodium 136 mmol/L (137-145) L 04/04/19 06:57 Potassium 4.6 mmol/L (3.5-5.1) 04/04/19 06:57 Chloride 99 mmol/L (98-107) 04/04/19 06:57 Carbon Dioxide 27 mmol/L (22-30) 04/04/19 06:57 Anion Gap 10 mmol/L 04/04/19 06:57 BUN 20 mg/dL (9-20) 04/04/19 06:57 Creatinine 0.93 mg/dL (0.66-1.25) 04/04/19 06:57 Est GFR (CKD-EPI)AfAm >90 (>60 ml/min/1.73 sqM) 04/04/19 06:57 Est GFR (CKD-EPI)NonAf 86 (>60 ml/min/1.73 sqM) 04/04/19 06:57 Glucose 105 mg/dL (74-99) H 04/04/19 06:57 Calcium 10.5 mg/dL (8.4-10.2) H 04/04/19 06:57 Total Bilirubin 1.6 mg/dL (0.2-1.3) H 03/31/19 09:02 AST 31 U/L (17-59) 03/31/19 09:02 ALT 33 U/L (21-72) 03/31/19 09:02 Alkaline Phosphatase 73 U/L (38-126) 03/31/19 09:02 C-Reactive Protein 50.9 mg/L (<10.0) H 04/01/19 07:17 Total Protein 6.6 g/dL (6.3-8.2) 03/31/19 09:02 Albumin 3.7 g/dL (3.5-5.0) 03/31/19 09:02 Prealbumin 16.0 mg/dL (18.0-42.0) L 04/01/19 07:17 Vancomycin Trough 21.0 ug/mL 04/04/19 06:57 Microbiology 03/31/19 12:12 Blood Blood Culture - Preliminary No Growth after 120 hours 03/31/19 15:06 Knee - Left Anaerobic Culture - Final 03/31/19 15:06 Knee - Left Anaerobic Culture - Final 03/31/19 15:06 Knee - Left Gram Stain - Final 03/31/19 15:06 Knee - Left Wound Culture - Final 03/31/19 15:06 Knee - Left Gram Stain - Final 03/31/19 15:06 Knee - Left Wound Culture - Final Assessment and Plan (1) Osteoarthritis of left knee Current Visit: No Status: Acute Code(s): M17.12 - UNILATERAL PRIMARY OSTEOARTHRITIS, LEFT KNEE SNOMED Code(s): 875199025275855 (2) Infection of prosthetic left knee joint Narrative/Plan: 63-year-old male who has a history of injury in the with resultant deafness and has had some progressive degenerative joint disease and is undergoing a left total knee arthroplasty. He does relate to prior arthrosc opic repairs in the past. He was doing well medially postoperatively but concerned had increasing amounts of swelling and decreasing range of motion. He was sent to see his physician by the physical therapist was not evidence of significant swelling to the knee with discoloration. Counseling is now taking the operating room and the incision and drainage to the site was performed, lavage and exchange of polyethylene occurred. Deep cultures have been obtained, antibiotic therapy was held preoperatively to help with surgical cultures. Vancomycin has been ordered, will consider addition of rifampin also but there are concerns given his underlying cardiac disease. Cultures will help further delineate the course of antibiotic therapy. IV access will be requested in the from of the PICC line. Baseline laboratories requested. 04/01/2019 the patient is starting to feel somewhat better now that he is postoperative in the swelling and pain to the knee is starting to improve. He is tolerating current antibiotic therapy well with vancomycin. Orders are sent to the [place] PICC line has been placed for his outpatient intravenous antibiotic therapy. Cultures are process which may further alter antibiotic choice but at this point in time vancomycin will be utilized. Case is discussed with Dr. Hodge. 04/04/2019 the patient is now showing improvement after his surgical debridement. He has with the help of physical therapy been up. Apparently in the next 24 hours he should have authorization for his home and [facility] antibiotic [facility] the [facility] and will also need home care and home PT. His IV access is in place. Cultures are negative pressure routinely at this stage to surgery a coagulase-negative staph as etiology which is often difficult to isolate. Vancomycin therapy provides adequate treatment.iven the retained prosthetic ateriall will also add rifampin therapy and monitior ESR and CRP which are quite elevated. 04/05/2019 patient is showing improvement. Has tolerated the addition of rifampin well. We'll continue vancomycin therapy as well as rifampin for likely quite was negative staph infection of the left total knee arthroplasty status post it's recent surgical debridement and polyethylene exchange. The patient is improving and we'll plan a 42 days of outpatient intravenous antibiotic therapy with close office follow-up. OnceVA approves will be discharged to home. Current Visit: Yes Status: Acute Code(s): T84.54XA - INFECT/INFLM REACTION DUE TO INTERNAL LEFT KNEE PROSTH, INIT SNOMED Code(s): 312216485
--- NOTE | 2019-04-05 22:24 | P.PN ---
Subjective Progress Note Date: 04/04/19 Principal diagnosis: Infected left total knee arthroplasty Patient is a 63-year-old male with a known history of hypertension, hyperlipidemia, GERD, atrial fibrillation paroxysmal, degenerative joint disease and hypertrophic cardiomyopathy in 2018 History of AICD placement who underwent left total knee arthroplasty recently came to the hospital with the complaints of swelling, pain and erythema of the left knee and stiffness. Left knee prosthetic infection was suspected. Patient was taken to or for left knee although coming with irrigation and insertion of antibiotic beads. Vancomycin was held until surgery and cultures were obtained. ID is following. 04/01/2019 Patient says that his leg swelling and stiffness is better. Able to flex better. Otherwise patient is being continued on antibiotics in the form of vancomycin. ID is following. PICC line was obtained. Currently being continued on pain medications and follow up culture reports. Patient has been afebrile otherwise. No complaints of chest pain or shortness of breath. No nausea vomiting or abdominal pain. 04.02.2019 Patient denied any complaints of chest pain or shortness of breath. Left knee pain is better and is able to bear weight. Continued on IV antibiotics. ID is following. 04/03/2019 Currently lying in the bed comfortably. Patient denied any complaints of chest pain or shortness of breath. Patient is able to ambulate and is able to bear weight on the left leg slowly. Still having some stiffness of the left knee. Swelling and redness is much improved. Currently time being continued on IV antibiotics in form of vancomycin. ID is following and patient will need IV ant ibiotics upon discharge. Leukocytosis resolved. 04/04/2019 Patient says that his left knee pain is much improved. Does complain of some increased foot swelling. No fever no chills. Currently being continued on antibiotics of vancomycin. ID is following. immigration case manager is on board for outpatient IV antibiotic regimen. No complains of chest pain or shortness of breath. No nausea vomiting or ab dominal pain. Tolerating oral diet. current medications reviewed. Active Medications Hydrocodone Bitart/Acetaminophen ([place] 7.5-325) 1 - 2 each PO Q6HR PRN PRN Reason: Pain Last Admin: 04/03/19 20:15 Dose: 2 each Documented by: Atorvastatin Calcium (Lipitor) 10 mg PO HS [facility] Last Admin: 04/03/19 20:15 Dose: 10 mg Documented by: Docusate Sodium (Colace) 100 mg PO DAILY [facility] Last Admin: 04/03/19 09:48 Dose: 100 mg Documented by: Enoxaparin Sodium (Lovenox) 30 mg SQ Q12HR [facility] Last Admin: 04/03/19 20:16 Dose: 30 mg Documented by: Fluticasone Propionate (Flonase Nasal [place]) 1 spray EA NOSTRIL BID [facility] Last Admin: 04/03/19 20:16 Dose: 1 spray Documented by: Hydromorphone HCl (Dilaudid) 1 mg IVP Q3HR PRN PRN Reason: Pain Scale 7 to 10 Last Admin: 04/03/19 22:11 Dose: 1 mg Documented by: Hydromorphone HCl (Dilaudid) 0.5 mg IVP Q3HR PRN PRN Reason: Pain Scale 4 to 6 Hydromorphone HCl (Dilaudid) 0.25 mg IVP Q3HR PRN PRN Reason: Pain Scale 1 to 3 Sodium Chloride (Saline 0.9%) 1,000 mls @ 50 mls/hr IV .Q20H [facility] Last Admin: 04/03/19 20:17 Dose: 50 mls/hr Documented by: Vancomycin HCl 1,750 mg/ (Sodium Chloride) 500 mls @ 167 mls/hr IVPB Q12H [facility] Last Admin: 04/03/19 20:16 Dose: 167 mls/hr Documented by: Lisinopril (Zestril) 20 mg PO DAILY [facility] Last Admin: 04/03/19 09:48 Dose: 20 mg Documented by: Loratadine (Claritin) 10 mg PO DAILY [facility] Last Admin: 04/03/19 09:48 Dose: 10 mg Documented by: Miscellaneous Information (Vancomycin Trough Due) 0 each MISCELLANE DIRECTED ONE Stop: 04/04/19 07:01 Naloxone HCl (Narcan) 0.2 mg IV Q2M PRN PRN Reason: Opioid Reversal Naproxen (Naprosyn) 500 mg PO Q12HR [facility] Last Admin: 04/03/19 20:14 Dose: 500 mg Documented by: Ondansetron HCl (Zofran) 4 mg IVP Q8HR PRN PRN Reason: Nausea And Vomiting Senna/Docusate Sodium (Senokot-S) 2 each PO HS [facility] Last Admin: 04/03/19 20:14 Dose: 2 each Documented by: Sodium Chloride (Saline Flush) 10 ml IV Q4HR PRN PRN Reason: PICC Line Sodium Chloride (Saline Flush) 10 ml IV WEEKLY [facility] Sodium Chloride (Saline Flush) 20 ml IV Q4HR PRN PRN Reason: PICC Line Spironolactone (Aldactone) 25 mg PO DAILY [facility] Last Admin: 04/03/19 09:48 Dose: 25 mg Documented by: Objective - Vital Signs Vital signs: Vital Signs Temp 98.1 F 04/04/19 19:24 Pulse 70 04/04/19 19:24 Resp 16 04/04/19 19:24 BP 128/70 04/04/19 19:24 Pulse Ox 95 04/04/19 19:24 Intake & Output 04/04/19 04/04/19 04/05/19 06:59 18:59 06:59 Intake Total 730 1339 Output Total 1200 1030 Balance -470 309 Intake: IV 400 Sodium Chloride 0.9% 1, 400 000 ml @ 50 mls/hr IV . Q20H [facility] Rx#:[id number] Oral 730 939 Output: Urine 1200 1030 Other: Voiding Method Toilet Urinal # Voids 2 - Exam PHYSICAL EXAMINATION: Patient is lying in the bed comfortably, no acute distress, awake alert and oriented.. HEENT: Normocephalic. Neck is supple. Pupils reactive. Nostrils clear. Oral cavity is moist. Ears reveal no drainage. Neck reveals no JVD, carotid bruits, or thyromegaly. CHEST EXAMINATION: Trachea is central. Symmetrical expansion. Lung guaman clear to auscultation and percussion. CARDIAC: Normal S1, S2 with no gallops. No murmurs ABDOMEN: Soft. Bowel sounds normal. No organomegaly. No abdominal bruits. Extremities: reveal no edema. No clubbing or cyanosis Neurologically awake, alert, oriented x3 with well-coordinated movements. No focal deficits noted Skin: No rash or skin lesions. Psychiatric: Coperative. Nonsuicidal Musculoskeletal: No joint swelling or deformity. Left knee swelling with redness and tender to palpation. Drain present.. - Labs CBC & Chem 7: 04/04/19 06:57 04/04/19 06:57 Labs: Abnormal Lab Results - Last 24 Hours (Table) 04/04/19 04/04/19 Range/Units 06:57 06:57 WBC 10.8 H (3.8-10.6) k/uL RBC 4.15 L (4.30-5.90) m/uL Neutrophils # 8.4 H (1.3-7.7) k/uL Sodium 136 L (137-145) mmol/L Glucose 105 H (74-99) mg/dL Calcium 10.5 H (8.4-10.2) mg/dL Microbiology - Last 24 Hours (Table) 03/31/19 15:06 Anaerobic Culture - Final Knee - Left 03/31/19 12:12 Blood Culture - Preliminary Blood No Growth after 96 hours Assessment and Plan Assessment: Left knee prosthetic joint infection Status post left knee arthrotomy with polyethylene exchange, irrigation and implantation antibiotic seeds Recent total knee arthroplasty left Paroxysmal atrial fibrillation. Currently on xarelto at home. On hold now. Re start once cleared by surgery. GERD Hypertension Hyperlipidemia D [place] joint disease Obstructive sleep apnea Hypertrophic cardio myopathy diagnosed in 2018 History of AICD placement Chronic CHF with systolic dysfunction Hiatal hernia PTSD DVT prophylaxis. Currently on Lovenox and Plan: Patient will be continued on pain management. Continue with antibiotics in the form of vancomycin as per ID recommendations. Follow-up culture reports. PICC line was placed. Xarelto will be restarted once cleared by orthopedic surgery. Continue the home medications and further conditions based on the clinical course. Prognosis is guarded. Time with Patient: Greater than 30
[2019-04-06] MEDS ORDERED: HYDROmorphone 0.5 MG/0.5 ML SYRINGE ONE ×2 (00:45)
[2019-04-06] MEDS: LORATADINE 10 MG TAB PO SCH (08:15)
[2019-04-06] MEDS: LISINOPRIL 20 MG TAB PO SCH (08:15)
[2019-04-06] MEDS: SPIRONOLACTONE 25 MG TAB PO SCH (08:15)
[2019-04-06] MEDS: VANCOMYCIN 1,500 MG in SODIUM CHLORIDE 0.9% 250 ML IVPB SCH ×3 (08:15→15:54)
[2019-04-06] MEDS: DOCUSATE 100 MG CAP PO SCH (08:15)
[2019-04-06] MEDS: FLUTICASONE 50MCG/SPRAY NASAL 16GM EA NOSTRIL SCH (08:16)
[2019-04-06] MEDS: SODIUM CHLORIDE 0.9% 1,000 ML IV SCH (08:16)
[2019-04-06] MEDS: NAPROXEN 250 MG TAB PO SCH (08:16)
[2019-04-06] MEDS: ENOXAPARIN 30 MG/0.3 ML SYRINGE SQ SCH (08:16)
[2019-04-06] MEDS: RIFAMPIN 300 MG CAP PO SCH (08:17)
[2019-04-06 08:18] LABS: African American GFR (CKD) >90 (>60 ml/min/1.73 sqM)
--- NOTE | 2019-04-06 10:17 | P.PN ---
Subjective Progress Note Date: 04/06/19 Principal diagnosis: s/p left knee arthrotomy, irrigation with polyethylene liner exchange and abx bead placement Patient doing well, no fever or chills Objective - Vital Signs Vital signs: Vital Signs Temp 98.1 F 04/06/19 07:00 Pulse 82 04/06/19 07:00 Resp 16 04/06/19 07:00 BP 109/65 04/06/19 07:00 Pulse Ox 95 04/06/19 07:00 Intake & Output 04/05/19 04/06/19 04/06/19 18:59 06:59 18:59 Intake Total 1268 Output Total 1350 475 Balance -82 -475 Intake: Intake, IV Titration 750 Amount Sodium Chloride 0.9% 1, 500 000 ml @ 50 mls/hr IV . Q20H [facility] Rx#:[id number] Vancomycin 1,500 mg In 250 Sodium Chloride 0.9% 250 ml @ 125 mls/hr IVPB Q12H [facility] Rx#:[id number] Oral 518 Output: Urine 1350 475 Other: Voiding Method Toilet Urinal # Voids 1 3 # Bowel Movements 1 - Exam Left lower extremity: Mild ecchymosis present, mark in good condition and position, no drainage. Distal neurovascular exam intact - Labs CBC & Chem 7: 04/04/19 06:57 04/06/19 06:30 Labs: Microbiology - Last 24 Hours (Table) 03/31/19 12:12 Blood Culture - Preliminary Blood No Growth after 120 hours Assessment and Plan Plan: Assessment: s/p left knee arthrotomy with irrigation,polyethylene liner exchange and abx bead placement Plan: Daily dressing changes/ice and elevate DVT prophylaxis Other medical specialty recommendations Patient will be discharged home today Time with Patient: Less than 30
--- NOTE | 2019-04-06 10:23 | P.DS ---
Providers Date of admission: 03/30/19 17:24 Expected date of discharge: 04/06/19 Attending physician: Rafi Hodge Consults: 03/30/19 17:57 Consult Physician Routine Consulting Provider: Julian Ibrahim Consult Reason/Comments: Left knee infection Do you want consulting provider notified?: Yes Consult Physician Routine Consulting Provider: Yolanda Waters Consult Reason/Comments: Medical Management Do you want consulting provider notified?: Yes Primary care physician: Isabel Coates Hospital Course: Date of admission: 03/30/2019 Date of discharge: 04/06/2019 Admission diagnosis: Infected left total knee arthroplasty Discharge diagnosis: Status post left knee arthrotomy, polyethylene liner exchange with irrigation and antibiotic bead placement Attending physician: Dr. Hodge Surgical procedures: Left knee arthrotomy with polyethylene liner exchange and irrigation and antibiotic bead placement Brief history: Patient is a 63-year-old male with a history of who left total knee arthroplasty on 03/21/2019. Patient was evaluated in the outpatient setting on 03/30/2019, patient has noticed increased swelling, redness and pain of the last 3 or 4 days. It was determined that there was a likely infection, patient was directly admitted to the hospital with plan for surgical intervention on 03/31/2019. Hospital course: Details of patient's surgery can be found in operative report. Patient tolerated the procedure well and was subsequently transported to orthopedic floor. Patient's orthopeidc and medical care was provided daily. Patient had daily laboratory tests performed for evaluation of overall blood counts Patient had daily physical therapy to include strengthening range of motion as well as education with walker ambulation. Patient was treated with Lovenox for their postoperative DVT prophylaxis during their inpatient stay. Patient was noted to have a relatively uneventful postoperative course. Patient reported satisfactory pain control with oral pain medications by postoperative day 0. Patient showed satisfactory progress with physical therapy. Patient moved steadily through the program and had no difficulty meeting the goals by postoperative day 1. Given patient's otherwise satisfactory course and having met physical therapy goals, plan is to discharge patient home on postoperative day 6. Discharge condition/disposition: Patient will be discharged home in stable condition. Discharge medications: Instructions are given on resumption of patient's normal daily medications per primary care recommendation, in addition patient will be prescribed [place] 7.5 mg/325 mg. Discharge instructions: 1. Wound care and infection precautions, keep incision dry and covered while showering, no lotions, creams, moisturizers. No soaking, tubs, pools, hottubs. Do not scrub over the incision. 2. Weight-bear as tolerated with walker / cane until follow-up. 3. Ice and elevate when necessary. Do not exceed 20 minutes per hour with ice pack. 4. Utilize compression sleeve until seen at first follow up appointment. 5. Visiting nursing care. 6. Home physical therapy 7. Pain meds and anticoagulants per prescription. 8. Pain medication has potential to cause constipation. Increase oral fluid and fiber intake. Contact primary care provider if you have not had a bowel movement within 48 hours after discharge 9. No anti-inflammatory medication until discussed at first post operative visit, this including Motrin, Aleve, Mobic, Diclofenac 10. Follow up in office at 2 weeks postop with Dada Jang PA-C 11. Follow up with your primary care doctor 7-10 days after discharge. 12. Contact [facility] with any questions, . Procedures: Left knee arthrotomy, polyethylene liner exchange with irrigation and antibiotic bead placement Patient Condition at Discharge: Good Plan - Discharge Summary Discharge Rx Participant: No New Discharge Prescriptions: New Vancomycin 1,750 mg IVPB Q24HR #84 bag HYDROcodone/APAP 7.5-325MG [[place] 7.5] 1 each PO Q6HR PRN #28 tab PRN Reason: Pain Continue Simvastatin [Zocor] 20 mg PO HS Cetirizine HCl [Zyrtec] 10 mg PO DAILY Spironolactone [Aldactone] 25 mg PO DAILY Naproxen [Naprosyn] 500 mg PO Q12HR Fluticasone Nasal [place] [Flonase Nasal [place]] 1 spray EA NOSTRIL BID Rivaroxaban [Xarelto] 20 mg PO DAILY Lisinopril [Zestril] 20 mg PO DAILY #0 Docusate [Colace] 100 mg PO DAILY #30 capsule Discharge Medication List Cetirizine HCl [Zyrtec] 10 mg PO DAILY 06/25/15 [History] Simvastatin [Zocor] 20 mg PO HS 06/25/15 [History] Fluticasone Nasal [place] [Flonase Nasal [place]] 1 spray EA NOSTRIL BID 03/15/19 [History] Naproxen [Naprosyn] 500 mg PO Q12HR 03/15/19 [History] Rivaroxaban [Xarelto] 20 mg PO DAILY 03/15/19 [History] Spironolactone [Aldactone] 25 mg PO DAILY 03/15/19 [History] Docusate [Colace] 100 mg PO DAILY #30 capsule 03/22/19 [Rx] Lisinopril [Zestril] 20 mg PO DAILY #0 03/22/19 [Rx] Vancomycin 1,750 mg IVPB Q24HR #84 bag 04/01/19 [Rx] HYDROcodone/APAP 7.5-325MG [[place] 7.5] 1 each PO Q6HR PRN #28 tab 04/06/19 [Rx] Follow up Appointment(s)/Referral(s): Isabel Coates DO [Primary Care Provider] - 1 Week Don Jang PAC [PHYSICIAN COLOR STRIPPER] - 04/15/19 4:00 pm Ambulatory/Diagnostic Orders: Basic Metabolic Panel [LAB.AMB] Location: None Selected Complete Blood Count w/diff [LAB.AMB] Location: None Selected Miscellaneous Lab Order [LAB.AMB] Location: None Selected Activity/Diet/Wound Care/Special Instructions: [facility] will deliver antibiotics and supplies by 10 a.m. on 04/07/19 - [phone] [facility] will meet patient at the home on 04/07/19 in the morning to begin teaching how to infuse antibiotics - [phone] KEEP INCISION COVERED WHILE SHOWERING Discharge Disposition: HOME WITH HOME HEALTH SERVICES
[2019-04-06 10:25] VITALS: BMI 33.6
[2019-04-06] MEDS: HYDROcodone/APAP 7.5-325MG 1 EACH TAB PO PRN (12:56)
[2019-04-06 15:31] VITALS: BP 124/63; PULSE 84; RESP 18; TEMP 98.4
--- NOTE | 2019-04-06 16:48 | P.PN ---
Subjective Progress Note Date: 04/05/19 Principal diagnosis: Infected left total knee arthroplasty Patient is a 63-year-old male with a known history of hypertension, hyperlipidemia, GERD, atrial fibrillation paroxysmal, degenerative joint disease and hypertrophic cardiomyopathy in 2018 History of AICD placement who underwent left total knee arthroplasty recently came to the hospital with the complaints of swelling, pain and erythema of the left knee and stiffness. Left knee prosthetic infection was suspected. Patient was taken to or for left knee although coming with irrigation and insertion of antibiotic beads. Vancomycin was held until surgery and cultures were obtained. ID is following. 04/01/2019 Patient says that his leg swelling and stiffness is better. Able to flex better. Otherwise patient is being continued on antibiotics in the form of vancomycin. ID is following. PICC line was obtained. Currently being continued on pain medications and follow up culture reports. Patient has been afebrile otherwise. No complaints of chest pain or shortness of breath. No nausea vomiting or abdominal pain. 04.02.2019 Patient denied any complaints of chest pain or shortness of breath. Left knee pain is better and is able to bear weight. Continued on IV antibiotics. ID is following. 04/03/2019 Currently lying in the bed comfortably. Patient denied any complaints of chest pain or shortness of breath. Patient is able to ambulate and is able to bear weight on the left leg slowly. Still having some stiffness of the left knee. Swelling and redness is much improved. Currently time being continued on IV antibiotics in form of vancomycin. ID is following and patient will need IV ant ibiotics upon discharge. Leukocytosis resolved. 04/04/2019 Patient says that his left knee pain is much improved. Does complain of some increased foot swelling. No fever no chills. Currently being continued on antibiotics of vancomycin. ID is following. manager pharmacy is on board for outpatient IV antibiotic regimen. No complains of chest pain or shortness of breath. No nausea vomiting or ab dominal pain. Tolerating oral diet. 04/05/2019 Patient's leg knee swelling and pain much improved. Range of motion improved. Patient is able to ambulate with support. Continue on IV antibiotics. Leg elevation while in bed was recommended. Case management is following for antibiotics arrangement. No fever. Acute overnight issues. current medications reviewed. Active Medications Hydrocodone Bitart/Acetaminophen ([place] 7.5-325) 1 - 2 each PO Q6HR PRN PRN Reason: Pain Last Admin: 04/03/19 20:15 Dose: 2 each Documented by: Atorvastatin Calcium (Lipitor) 10 mg PO HS [facility] Last Admin: 04/03/19 20:15 Dose: 10 mg Documented by: Docusate Sodium (Colace) 100 mg PO DAILY [facility] Last Admin: 04/03/19 09:48 Dose: 100 mg Documented by: Enoxaparin Sodium (Lovenox) 30 mg SQ Q12HR [facility] Last Admin: 04/03/19 20:16 Dose: 30 mg Documented by: Fluticasone Propionate (Flonase Nasal [place]) 1 spray EA NOSTRIL BID [facility] Last Admin: 04/03/19 20:16 Dose: 1 spray Documented by: Hydromorphone HCl (Dilaudid) 1 mg IVP Q3HR PRN PRN Reason: Pain Scale 7 to 10 Last Admin: 04/03/19 22:11 Dose: 1 mg Documented by: Hydromorphone HCl (Dilaudid) 0.5 mg IVP Q3HR PRN PRN Reason: Pain Scale 4 to 6 Hydromorphone HCl (Dilaudid) 0.25 mg IVP Q3HR PRN PRN Reason: Pain Scale 1 to 3 Sodium Chloride (Saline 0.9%) 1,000 mls @ 50 mls/hr IV .Q20H [facility] Last Admin: 04/03/19 20:17 Dose: 50 mls/hr Documented by: Vancomycin HCl 1,750 mg/ (Sodium Chloride) 500 mls @ 167 mls/hr IVPB Q12H [facility] Last Admin: 04/03/19 20:16 Dose: 167 mls/hr Documented by: Lisinopril (Zestril) 20 mg PO DAILY [facility] Last Admin: 04/03/19 09:48 Dose: 20 mg Documented by: Loratadine (Claritin) 10 mg PO DAILY [facility] Last Admin: 04/03/19 09:48 Dose: 10 mg Documented by: Miscellaneous Information (Vancomycin Trough Due) 0 each MISCELLANE DIRECTED ONE Stop: 04/04/19 07:01 Naloxone HCl (Narcan) 0.2 mg IV Q2M PRN PRN Reason: Opioid Reversal Naproxen (Naprosyn) 500 mg PO Q12HR [facility] Last Admin: 04/03/19 20:14 Dose: 500 mg Documented by: Ondansetron HCl (Zofran) 4 mg IVP Q8HR PRN PRN Reason: Nausea And Vomiting Senna/Docusate Sodium (Senokot-S) 2 each PO HS [facility] Last Admin: 04/03/19 20:14 Dose: 2 each Documented by: Sodium Chloride (Saline Flush) 10 ml IV Q4HR PRN PRN Reason: PICC Line Sodium Chloride (Saline Flush) 10 ml IV WEEKLY [facility] Sodium Chloride (Saline Flush) 20 ml IV Q4HR PRN PRN Reason: PICC Line Spironolactone (Aldactone) 25 mg PO DAILY [facility] Last Admin: 04/03/19 09:48 Dose: 25 mg Documented by: Objective - Vital Signs Vital signs: Vital Signs Temp 98.3 F 04/05/19 15:00 Pulse 85 04/05/19 15:00 Resp 17 04/05/19 15:00 BP 119/68 04/05/19 15:00 Pulse Ox 96 04/05/19 15:00 Intake & Output 04/05/19 04/05/19 04/06/19 06:59 18:59 06:59 Intake Total 1268 Output Total 450 1350 475 Balance -450 -82 -475 Intake: Intake, IV Titration 750 Amount Sodium Chloride 0.9% 1, 500 000 ml @ 50 mls/hr IV . Q20H [facility] Rx#:[id number] Vancomycin 1,500 mg In 250 Sodium Chloride 0.9% 250 ml @ 125 mls/hr IVPB Q12H [facility] Rx#:[id number] Oral 518 Output: Urine 450 1350 475 Other: # Voids 1 1 1 - Exam PHYSICAL EXAMINATION: Patient is lying in the bed comfortably, no acute distress, awake alert and oriented.. HEENT: Normocephalic. Neck is supple. Pupils reactive. Nostrils clear. Oral cavity is moist. Ears reveal no drainage. Neck reveals no JVD, carotid bruits, or thyromegaly. CHEST EXAMINATION: Trachea is central. Symmetrical expansion. Lung guaman clear to auscultation and percussion. CARDIAC: Normal S1, S2 with no gallops. No murmurs ABDOMEN: Soft. Bowel sounds normal. No organomegaly. No abdominal bruits. Extremities: reveal no edema. No clubbing or cyanosis Neurologically awake, alert, oriented x3 with well-coordinated movements. No focal deficits noted Skin: No rash or skin lesions. Psychiatric: Coperative. Nonsuicidal Musculoskeletal: No joint swelling or deformity. Left knee swelling with redness and tender to palpation. Drain present.. - Labs CBC & Chem 7: 04/04/19 06:57 04/06/19 06:30 Labs: Microbiology - Last 24 Hours (Table) 03/31/19 12:12 Blood Culture - Preliminary Blood No Growth after 120 hours 03/31/19 15:06 Anaerobic Culture - Final Knee - Left 03/31/19 15:06 Anaerobic Culture - Final Knee - Left Assessment and Plan Assessment: Left knee prosthetic joint infection Status post left knee arthrotomy with polyethylene exchange, irrigation and implantation antibiotic seeds Recent total knee arthroplasty left Paroxysmal atrial fibrillation. Currently on xarelto at home. On hold now. Restart once cleared by surgery. GERD Hypertension Hyperlipidemia D [place] joint disease Obstructive sleep apnea Hypertrophic cardio myopathy diagnosed in 2018 History of AICD placement Chronic CHF with systolic dysfunction Hiatal hernia PTSD DVT prophylaxis. Currently on Lovenox and Plan: Patient will be continued on pain management. Continue with antibiotics in the form of vancomycin as per ID recommendations. Follow-up culture reports. PICC line was placed. Xarelto will be restarted once cleared by orthopedic surgery. Continue the home medications and further conditions based on the clinical course. Prognosis is guarded. Time with Patient: Greater than 30
--- NOTE | 2019-04-06 22:05 | P.PN ---
Subjective Progress Note Date: 04/06/19 63-year-old male who presents to Hospital for surgical intervention into his left knee. 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 The patient also has a history of hypertrophic cardiomyopathy, and underwent surgical correction at the [facility], also has cardiac dysrhythmia and has an AICD in place which replaced a prior pacemaker. His knee continued to bother him and consequently underwent a left total knee arthroplasty. Postoperatively he was progressing well for the first few days. His physical therapist came in house and noticed the leg starting to swell he was having some diminishing range of motion. On a follow-up visit there was no marked change to the leg it was swollen discolored and had poor range of motion. He was sent to his orthopedic surgeon and upon evaluation it appeared there was an acute change in the patient was brought to the hospital for further intervention. Concerns for infection to the left knee arthroplasty that was just placed a consult was requested. Antibiotic therapy had been ordered by the medicine service, however I held that until surgical cultures could be obtained, then vancomycin therapy initiated. Patient is times quite comfortable in the postoperative time frame. He relates before coming to hospital he did feel poorly he thinks he did have a fever and drenching sweats but did not have rigors. He did not note any extensive drainage from the joint. 04/01/2019 the patient is to enhance improvement in his status. He is certainly with less pain. Improved range of motion. Little drainage from the knee. He is not having fevers or chills as he was. 04/04/2019 the patient continues to improve. His pain has improved and he is working with a physical therapist. [facility].he is improved the last 24 hours. 04/05/2019 the patient is definitely improved. He has less miserable. Is related is been up with the physical therapist twice through the day walking and doing quite well. He looks forward to [facility] of his [facility] and discharge soon. Denies other acute symptoms. 04/06/2019 the patient is with further improvement. Relates with physical therapy is able to get up with a walker. Looks forward to going home today. [facility]. Objective - Vital Signs Vital signs: Vital Signs Temp 98.4 F 04/06/19 15:00 Pulse 84 04/06/19 15:00 Resp 18 04/06/19 15:00 BP 124/63 04/06/19 15:00 Pulse Ox 93 L 04/06/19 15:00 Intake & Output 04/06/19 04/06/19 04/07/19 06:59 18:59 06:59 Intake Total 200 Output Total 475 1230 Balance -475 -1030 Weight 103.419 kg Intake: Oral 200 Output: Urine 475 1230 Other: Voiding Method Toilet Urinal # Voids 3 # Bowel Movements 1 - Exam Pleasant 63-year-old male not currently distressed postoperatively adequate pain control HEENT: Anicteric conjunctiva are pink and moist nasal mucosa grossly intact without significant lesions, there is no thrush. Bilateral cochlear implants, speech recognition is quite good Neck: The neck is supple without significant lymphadenopathy or thyromegaly. Lungs: Good bilateral air entry without significant crackles or wheezing. There is no significant bronchial sounds. There is no egophony or dullness. Heart: Irregular with a positive S4. There is no significant murmur click or rub, PMI was nondisplaced. Abdomen: Obese, Positive bowel sounds soft and nontender without palpable masses or organomegaly. There was no guarding or rebound. Extremities: The upper extremities have excellent pulses they are symmetric, no significant petechiae or telangiectasia. No splinter hemorrhages were noted. The right lower extremity has no lesions. Left leg The bulky dressing is removed. Dressing is in place in the anterior aspect of the knee that is dry. The swelling to the knee joint and abnormal color has improved since surgery. No bleeding is noted on the dressing. There is no erythema above or below the knee that can be visualized. There is no significant inguinal lymphadenopathy. No other lymphadenopathy is noted. Neuro: Awake alert oriented to person place and time. He has a cranial nerve VIII defects bilaterally but there are no new acute gross focal sensory motor deficits - Labs CBC & Chem 7: 04/04/19 06:57 04/06/19 06:30 Labs: Microbiology - Last 24 Hours (Table) 03/31/19 12:12 Blood Culture - Final Blood No Growth after 144 hours Laboratory Results WBC 10.8 k/uL (3.8-10.6) H 04/04/19 06:57 RBC 4.15 m/uL (4.30-5.90) L 04/04/19 06:57 Hgb 13.0 gm/dL (13.0-17.5) 04/04/19 06:57 Hct 39.8 % (39.0-53.0) 04/04/19 06:57 MCV 95.9 fL (80.0-100.0) 04/04/19 06:57 MCH 31.3 pg (25.0-35.0) 04/04/19 06:57 MCHC 32.6 g/dL (31.0-37.0) 04/04/19 06:57 RDW 14.5 % (11.5-15.5) 04/04/19 06:57 Plt Count 386 k/uL (150-450) 04/04/19 06:57 Neutrophils % 78 % 04/04/19 06:57 Lymphocytes % 10 % 04/04/19 06:57 Monocytes % 6 % 04/04/19 06:57 Eosinophils % 4 % 04/04/19 06:57 Basophils % 1 % 04/04/19 06:57 Neutrophils # 8.4 k/uL (1.3-7.7) H 04/04/19 06:57 Lymphocytes # 1.1 k/uL (1.0-4.8) 04/04/19 06:57 Monocytes # 0.7 k/uL (0-1.0) 04/04/19 06:57 Eosinophils # 0.4 k/uL (0-0.7) 04/04/19 06:57 Basophils # 0.1 k/uL (0-0.2) 04/04/19 06:57 Hypochromasia Slight 04/04/19 06:57 ESR 36 mm/hr (0-15) H 04/01/19 07:17 PT 11.0 sec (9.0-12.0) 04/01/19 07:17 INR 1.0 (<1.2) 04/01/19 07:17 Sodium 136 mmol/L (137-145) L 04/04/19 06:57 Potassium 4.6 mmol/L (3.5-5.1) 04/04/19 06:57 Chloride 99 mmol/L (98-107) 04/04/19 06:57 Carbon Dioxide 27 mmol/L (22-30) 04/04/19 06:57 Anion Gap 10 mmol/L 04/04/19 06:57 BUN 20 mg/dL (9-20) 04/04/19 06:57 Creatinine 0.90 mg/dL (0.66-1.25) 04/06/19 06:30 Est GFR (CKD-EPI)AfAm >90 (>60 ml/min/1.73 sqM) 04/06/19 06:30 Est GFR (CKD-EPI)NonAf 89 (>60 ml/min/1.73 sqM) 04/06/19 06:30 Glucose 105 mg/dL (74-99) H 04/04/19 06:57 Calcium 10.5 mg/dL (8.4-10.2) H 04/04/19 06:57 Total Bilirubin 1.6 mg/dL (0.2-1.3) H 03/31/19 09:02 AST 31 U/L (17-59) 03/31/19 09:02 ALT 33 U/L (21-72) 03/31/19 09:02 Alkaline Phosphatase 73 U/L (38-126) 03/31/19 09:02 C-Reactive Protein 50.9 mg/L (<10.0) H 04/01/19 07:17 Total Protein 6.6 g/dL (6.3-8.2) 03/31/19 09:02 Albumin 3.7 g/dL (3.5-5.0) 03/31/19 09:02 Prealbumin 16.0 mg/dL (18.0-42.0) L 04/01/19 07:17 Vancomycin Trough 21.0 ug/mL 04/04/19 06:57 Microbiology 03/31/19 12:12 Blood Blood Culture - Final No Growth after 144 hours 03/31/19 15:06 Knee - Left Anaerobic Culture - Final 03/31/19 15:06 Knee - Left Anaerobic Culture - Final 03/31/19 15:06 Knee - Left Gram Stain - Final 03/31/19 15:06 Knee - Left Wound Culture - Final 03/31/19 15:06 Knee - Left Gram Stain - Final 03/31/19 15:06 Knee - Left Wound Culture - Final Assessment and Plan (1) Osteoarthritis of left knee Status: Acute Code(s): M17.12 - UNILATERAL PRIMARY OSTEOARTHRITIS, LEFT KNEE SNOMED Code(s): 232996129993857 (2) Infection of prosthetic left knee joint Narrative/Plan: 63-year-old male who has a history of injury in the with resultant deafness and has had some progressive degenerative joint disease and is undergoing a left total knee arthroplasty. He does relate to prior arthroscopic repairs in the past. He was doing well medially postoperatively but concerned had increasing amounts of swelling and decreasing range of motion. He was sent to see his physician by the physical therapist was not evidence of significant swelling to the knee with discoloration. Counseling is now taking the operating room and the incision and drainage to the site was performed, lavage and exchange of polyethylene occurred. Deep cultures have been obtained, antibiotic therapy was held preoperatively to help with surgical cultures. Vancomycin has been ordered, will consider addition of rifampin also but there are concerns given his underlying cardiac disease. Cultures will help further delineate the course of antibiotic therapy. IV access will be requested in the from of the PICC line. Baseline laboratories requested. 04/01/2019 the patient is starting to feel somewhat better now that he is postoperative in the swelling and pain to the knee is starting to improve. He is tolerating current antibiotic therapy well with vancomycin. Orders are sent to the [place] PICC line has been placed for his outpatient intravenous antibiotic therapy. Cultures are process which may further alter antibiotic choice but at this point in time vancomycin will be utilized. Case is discussed with Dr. Hodge. 04/04/2019 the patient is now showing improvement after his surgical debridement. He has with the help of physical therapy been up. Apparently in the next 24 hours he should have authorization for his home and his antibiotic [facility] and will also need home care and home PT. His IV access is in place. Cultures are negative pressure routinely at this stage to surgery a coagulase-negative staph as etiology which is often difficult to isolate. Vancomycin therapy provides adequate treatment.iven the retained prosthetic ateriall will also add rifampin therapy and monitior ESR and CRP which are quite elevated. 04/05/2019 patient is showing improvement. Has tolerated the addition of rifampin well. We'll continue vancomycin therapy as well as rifampin for likely quite was negative staph infection of the left total knee arthroplasty status post it's recent surgical debridement and polyethylene exchange. The patient is improving and we'll plan a 42 days of outpatient intravenous antibiotic therapy with close office follow-up. OnceVA approves will be discharged to home. 04/06/2019 the patient has further improvement. He will be discharged home today. He is approved his outpatient intravenous antibiotic therapy of vancomycin. He is to call the office in 3 and 6 weeks. Blood work has been requested with the ongoing outpatient intravenous vancomycin therapy. Pharmacy will be dosing his vancomycin. Status: Acute Code(s): T84.54XA - INFECT/INFLM REACTION DUE TO INTERNAL LEFT KNEE PROSTH, INIT SNOMED Code(s): 207003799
[2019-04-07] MEDS ORDERED: VANCOMYCIN TROUGH DUE 1 EACH MISC MISCELLANE ONE (07:00)
== END 2019-04-06 18:07 | disposition home health service (06) | DRG 486 ==
LOC: 4SSUR 17:24
PROVIDERS: ADMIT Orthopaedic Surgery; ATTEND Orthopaedic Surgery
PROC: 0SUW09Z Supplement Left Knee Joint, Tibial Surface with Liner, Open Approach (ICD-10-PCS; principal; 2019-03-30)
PROC: 0SPD09Z Removal of Liner from Left Knee Joint, Open Approach (ICD-10-PCS; principal; 2019-03-30)
PROC: 02HV33Z Insertion of Infusion Device into Superior Vena Cava, Percutaneous Approach (ICD-10-PCS; 2019-04-01)
DX: T84.54XA Infection and inflammatory reaction due to internal left knee prosthesis, initial encounter (principal); I42.2 Other hypertrophic cardiomyopathy; I50.22 Chronic systolic (congestive) heart failure; B95.8 Unspecified staphylococcus as the cause of diseases classified elsewhere; E78.5 Hyperlipidemia, unspecified; F43.10 Post-traumatic stress disorder, unspecified; G47.33 Obstructive sleep apnea (adult) (pediatric); H91.90 Unspecified hearing loss, unspecified ear; I11.0 Hypertensive heart disease with heart failure; I48.0 Paroxysmal atrial fibrillation; K21.9 Gastro-esophageal reflux disease without esophagitis; K44.9 Diaphragmatic hernia without obstruction or gangrene; Y83.1 Surgical operation with implant of artificial internal device as the cause of abnormal reaction of the patient, or of later complication, without mention of misadventure at the time of the procedure; Z79.01 Long term (current) use of anticoagulants; Z79.899 Other long term (current) drug therapy; Z87.891 Personal history of nicotine dependence; Z95.810 Presence of automatic (implantable) cardiac defibrillator; Z79.891 Long term (current) use of opiate analgesic; Z96.21 Cochlear implant status
CPT/HCPCS: 36573; 80048; 80053; 80202; 82565; 84134; 85025; 85610; 85652; 86140; 87040; 87070; 87075; 87205

== ENCOUNTER → 2021-09-20 | Outpatient (CLI) | payer MEDICARE, OTHER ==
--- NOTE | 2021-09-20 09:30 | US ---
EXAMINATION TYPE: US venous doppler duplex LE RT DATE OF EXAM: 09/20/2021 8:45 AM COMPARISON: None available CLINICAL HISTORY: M79.661 PAIN IN RT LOWER LEG. Right lower leg pain SIDE PERFORMED: right TECHNIQUE: The lower extremity deep venous system is examined utilizing real time linear array sonog jhon with graded compression, doppler sonography and color-flow sonography. VESSELS IMAGED: Common Femoral Vein Deep Femoral Vein Femoral Vein Popliteal Vein Proximal Calf Veins Right Leg: no evidence of DVT IMPRESSION: Grayscale, color doppler, spectral doppler imaging performed of the deep veins of the lo wer extremities. There is normal flow, compressibility, vascular waveforms. No evidence of DVT of t he right lower extremity.
== END | disposition home or self-care (01) ==
LOC: RADUSWWP 08:10
PROVIDERS: ATTEND Family Medicine
DX: M79.661 Pain in right lower leg (principal)

== ENCOUNTER 2023-10-03 16:15 | Emergency (ER) | payer MEDICARE, OTHER ==
--- NOTE | 2023-10-03 16:30 | ED ---
Fall HPI - General Chief Complaint: Fall Stated Complaint: Fall Time Seen by Provider: 10/03/23 16:16 Source: patient, EMS Mode of arrival: EMS - History of Present Illness Initial Comments: 67-year-old male on Xarelto presenting to the ED with a chief complaint of fall. Patient states that he was going down 2 stairs when his brother with autism cut him off causing him to lose his balance falling down the 2 stairs landing directly onto his right shoulder. Denies head or neck injury at this time. Denies hip injury at this time. Denies any other injury at this time. There is no chest pain, shortness of breath, dizziness preceding the fall. At this time has no other complaints other than right shoulder pain. - Related Data Home Medications Medication Instructions Recorded Confirmed Cetirizine HCl [Zyrtec] 10 mg PO DAILY 06/25/15 03/30/19 Simvastatin [Zocor] 20 mg PO HS 06/25/15 03/30/19 Fluticasone Nasal [place] [Flonase 1 spray EA NOSTRIL BID 03/15/19 03/30/19 Nasal [place]] Naproxen [Naprosyn] 500 mg PO Q12HR 03/15/19 03/30/19 Rivaroxaban [Xarelto] 20 mg PO DAILY 03/15/19 03/31/19 Spironolactone [Aldactone] 25 mg PO DAILY 03/15/19 03/30/19 Previous Rx's Medication Instructions Recorded Docusate [Colace] 100 mg PO DAILY #30 capsule 03/22/19 lisinopriL [Zestril] 20 mg PO DAILY #0 03/22/19 Vancomycin 1,750 mg IVPB Q24HR #84 bag 04/01/19 HYDROcodone/APAP 7.5-325MG [[place] 1 each PO Q6HR PRN #28 tab 04/06/19 7.5] Allergies Allergy/AdvReac Type Severity Reaction Status Date / Time No Known Allergies Allergy Verified 10/03/23 16:42 Review of Systems ROS Statement: Those systems with pertinent positive or pertinent negative responses have been documented in the HPI. ROS Other: All systems not noted in ROS Statement are negative. Past Medical History Past Medical History: Atrial Fibrillation, GERD/Reflux, Hearing Disorder / Deafness, Hyperlipidemia, Hypertension, Osteoarthritis (OA), Sleep Apnea/CPAP/BIPAP Additional Past Medical History / Comment(s): HYPERTROPHIC CARDIOMYOPATHY 2007 History of Any Multi-Drug Resistant Organisms: None Reported Past Surgical History: AICD, Heart Catheterization, Orthopedic Surgery, Pacemaker Additional Past Surgical History / Comment(s): HIATAL HERNIA SURG RAMOS KNEE SURGERIES. Cochlear Implant 2014; surgery for hypertrophic cardiomyopathy - "removed layers of muscle from my heart at the [facility] in August 2007" Past Anesthesia/Blood Transfusion Reactions: Previous Problems w/ Anesthesia Additional Past Anesthesia/Blood Transfusion Reaction / Comment(s): HARD TO INTUBATE R/T THROAT. Type of Cardiac Device: Permanent Pacemaker, AICD Device Placement Date:: 05/2010 Past Psychological History: PTSD Past Alcohol Use History: Occasional Past Drug Use History: None Reported - Past Family History Father Family Medical History: Deep Vein Thrombosis (DVT) General Exam Limitations: no limitations General appearance: alert, in no apparent distress Head exam: Present: atraumatic, normocephalic, other (No serrano signs or raccoon's eyes.) Eye exam: Present: normal appearance, PERRL, EOMI Neck exam: Present: normal inspection Respiratory exam: Present: normal lung sounds bilaterally Cardiovascular Exam: Present: regular rate GI/Abdominal exam: Present: soft, normal bowel sounds. Absent: distended, tenderness, guarding, rebound, rigid Extremities exam: Present: other (Full active range of motion of bilateral lower extremities and left upper extremity. No pronator drift of the left upper extremity. Strength and sensation intact. Right upper extremity is in a sling. No step-off or crepitus) Back exam: Present: other (No midline spinal tenderness to palpation.) Neurological exam: Present: alert, oriented X3, CN II-XII intact Skin exam: Present: warm, dry Course Vital Signs 10/03/23 16:16 Temperature 98.3 F Pulse Rate 79 Respiratory 18 Rate Blood Pressure 137/89 O2 Sat by Pulse 96 Oximetry Medical Decision Making - Medical Decision Making Was pt. sent in by a medical professional or institution (, PA, TRAIN ATTENDANT, urgent care, hospital, or halfway...) When possible be specific @ -No Did you speak to anyone other than the patient for history (EMS, parent, family, police, friend...)? What history was obtained from this source @ -No Did you review nursing and triage notes (agree or disagree)? Why? @ -I reviewed and agree with nursing and triage notes Were old charts reviewed (outside hosp., previous admission, EMS record, old EKG, old radiological studies, urgent care reports/EKG's, halfway records)? Report findings @ -Reviewed prior EKG. For further details please see below. Differential Diagnosis (chest pain, altered mental status, abdominal pain women, abdominal pain men, vaginal bleeding, weakness, fever, dyspnea, syncope, headache, dizziness, GI bleed, back pain, seizure, CVA, palpatations, mental health, musculoskeletal)? @ -Differential Musculoskeletal Muscular strain, contusion, ligament sprain, fracture, arthritis, septic arthritis, bursitis, cellulitis, muscle spasm, nerve compression, DVT, arterial occlusion, herpes zoster, electrolyte abnormality, tumor.... This is not meant to be in all inclusive list EKG interpreted by me (3pts min.). @ -EKG interpreted by me showing a paced rhythm at [address] or T wave changes. MN 230, QRS 166, QT/QTc 423/451. Appears largely similar to prior. X-rays interpreted by me (1pt min.). @ -X-ray of the right shoulder and chest interpreted me which revealed no evidence of acute finding. CT interpreted by me (1pt min.). @ -None done U/S interpreted by me (1pt. min.). @ -None done What testing was considered but not performed or refused? (CT, X-rays, U/S, labs)? Why? @ -None What meds were considered but not given or refused? Why? @ -None Did you discuss the management of the patient with other professionals (professionals i.e. , PA, TRAIN ATTENDANT, lab, RT, psych nurse, social work job titles, vamp maker, teacher, [place] 9 police officer, case supervisor)? Give summary @ -No Was smoking cessation discussed for >3mins.? @ -No Was critical care preformed (if so, how long)? @ -No Were there social determinants of health that impacted care today? How? (Homelessness, low income, unemployed, alcoholism, drug addiction, transportation, low edu. Level, literacy, decrease access to med. care, prison, rehab)? @ -No Was there de-escalation of care discussed even if they declined (Discuss DNR or withdrawal of care, Hospice)? DNR status @ -No What co-morbidities impacted this encounter? (DM, HTN, Smoking, COPD, CAD, Cancer, CVA, ARF, Chemo, Hep., AIDS, mental health diagnosis, sleep apnea, morbid obesity)? @ -None Was patient admitted / discharged? Hospital course, mention meds given and route, prescriptions, significant lab abnormalities, going to OR and other pertinent info. @ -Discharge 67-year-old male presenting status post mechanical fall after his brother excellently tripped and going down 2 stairs landing directly onto his right shoulder. Patient is on Xarelto however repeatedly denies head or neck injury. No LOC. At this time only complains of pain of the right shoulder. On e xamination strength and sensation of left upper extremity and bilateral lower extremities equal and intact initial full active range of motion. Head shows no outward evidence of trauma. Cranial nerves II through XII intact. Imaging of the right shoulder and chest revealed no evidence of acute finding. Patient discharged home in stable condition. Discussed return precautions with patient who verbalized agreement. Undiagnosed new problem with uncertain prognosis? @ -No Drug Therapy requiring intensive monitoring for toxicity (Heparin, Nitro, Insulin, Cardizem)? @ -No Were any procedures done? @ -No Diagnosis/symptom? @ -Status post mechanical fall, right shoulder pain Acute, or Chronic, or Acute on Chronic? @ -Acute Uncomplicated (without systemic symptoms) or Complicated (systemic symptoms)? @ -Uncomplicated Side effects of treatment? @ -No Exacerbation, Progression, or Severe Exacerbation? @ -No Poses a threat to life or bodily function? How? (Chest pain, [place], [place], pneumonia, PE, COPD, DKA, ARF, appy, cholecystitis, CVA, Diverticulitis, Homicidal, Suicidal, threat to staff... and all critical care pts) @ -No Disposition Clinical Impression: Fall, Right shoulder pain Disposition: HOME SELF-CARE Condition: Good Instructions (If sedation given, give patient instructions): Fall Prevention for Older Adults (ED) Additional Instructions: Please return to the Emergency Department if symptoms worsen or any other concerns. Please follow-up with your primary care provider. Is patient prescribed a controlled substance at d/c from ED?: No Referrals: Isabel Coates DO [Primary Care Provider] - 1-2 days Time of Disposition: 17:44
[2023-10-03] MEDS: ACETAMINOPHEN TAB 500 MG TAB PO STA (16:42)
[2023-10-03 17:00] VITALS: RESP 18; TEMP 98.3
--- NOTE | 2023-10-03 17:23 | XR ---
EXAMINATION TYPE: XR shoulder complete RT DATE OF EXAM: 10/03/2023 5:03 PM CLINICAL INDICATION:Male, 67 years old with history of s/p fall landing on shoulder/right side; [facility] COMPARISON: None TECHNIQUE: XR shoulder complete RT; examined in AP, internally rotated and scapular Y projections. FINDINGS: No evidence of acute osseous pathology, joint dislocation, or soft tissue swelling. The remaining po rtions of the visualized chest are unremarkable. Mild degeneration changes of the acromion, distal c lavicle with osteophyte formation. There is osteophyte formation of the glenoid and humeral head. The re is joint space narrowing of glenohumeral joint IMPRESSION: 1. No acute osseous pathology. 2. Mild shoulder osteoarthrosis.
--- NOTE | 2023-10-03 17:24 | XR ---
EXAMINATION TYPE: XR chest 2V DATE OF EXAM: 10/03/2023 5:03 PM CLINICAL INDICATION:Male, 67 years old with history of s/p fall landing on shoulder/right side; [facility] COMPARISON: Chest radiographs from 04/01/2019 TECHNIQUE: XR chest 2V Frontal and lateral views of the chest. FINDINGS: Lungs/Pleura: There is no evidence of pleural effusion, focal consolidation, or pneumothorax. Pulmonary vascularity: Unremarkable. Heart/mediastinum: Cardiomediastinal silhouette is enlarged and stable. Two lead cardiac conduction d evice overlying the left hemithorax with lead tips projecting over the right ventricle and right atri um. Musculoskeletal: No acute osseous pathology. Midline sternotomy wires are noted. IMPRESSION: No acute cardiopulmonary disease/process.
[2023-10-03] MEDS: MORPHINE SULFATE 2 MG/ML SYRINGE IM ONE (18:07)
[2023-10-03 18:52] VITALS: BP 154/86; PULSE 82
== END 2023-10-03 18:18 | disposition home or self-care (01) ==
LOC: EC 16:15
DX: S49.91XA Unspecified injury of right shoulder and upper arm, initial encounter (principal); W10.9XXA Fall (on) (from) unspecified stairs and steps, initial encounter
CPT/HCPCS: 73030; 71046; 99284; 96372; J2270

== ENCOUNTER → 2024-07-06 | Outpatient (CLI) | payer MEDICARE, OTHER ==
[2024-07-06 16:52] LABS: Blood Urea Nitrogen 15.8 mg/dL (9.0-27.0); Carbon Dioxide 23.6 mmol/L (21.6-31.8); Chloride 104 mmol/L (96-109); Potassium 4.4 mmol/L (3.5-5.5); Sodium 139 mmol/L (135-145)
[2024-07-06 17:24] LABS: HCT 50.1 % (39.6-50.0); HGB 16.8 g/dL (13.0-17.0); MCH 33.6 pg (27.0-32.0); MCHC 33.5 g/dL (32.0-37.0); MCV 100.2 FL (80.0-97.0); Mean Platelet Volume 9.5 FL (9.5-12.2); NRBC Per 100 WBC 0 X 10*3/uL (0.00-0.01); Platelet Count 192 X 10*3/uL (140-440); RDW 14.2 % (11.5-14.5); WBC 6.33 X 10*3/uL (4.50-10.00)
== END | disposition home or self-care (01) ==
LOC: LABWHC1 09:11
PROVIDERS: ATTEND Internal Medicine
DX: R94.39 Abnormal result of other cardiovascular function study (principal); R06.02 Shortness of breath; R07.9 Chest pain, unspecified
CPT/HCPCS: 36415; 80051; 82565; 84520; 85027

== ENCOUNTER 2024-07-12 08:56 | Day surgery (SDC) | payer MEDICARE, OTHER ==
[~2024-07-12 08:56] MED LIST changes: +ALPRAZolam 0.25 MG TAB PO PRN; +ALPRAZolam 0.5 MG TAB PO PRN; +ATORVASTATIN 80 MG TAB PO STA; -HYDROmorphone 0.5 MG/0.5 ML SYRINGE IVP PRN; -LIDOCAINE 1% 20 ML VIAL (10MG/ML) FOR IV START INTRADERMA PRN; -MELOXICAM 7.5 MG TAB PO ONE; +NITROGLYCERIN SL TABS 0.4 MG TAB SUBLINGUAL PRN; -ONDANSETRON 4 MG/2 ML VIAL IVP ONE; -ROPIVACAINE 246.25 MG, EPINEPHrine 0.5 MG, KETOROLAC 30 MG, cloNIDine HCL/PF 80 MCG, WA... MISCELLANE ONE; -TRANEXAMIC ACID 1,000 MG in SODIUM CHLORIDE 0.9% 100 ML IVPB ONE
[2024-07-12] MEDS: SODIUM CHLORIDE 0.9% 1,000 ML in EMPTY BAG 1 BAG IV SCH (09:11)
[2024-07-12] MEDS: ASPIRIN 325 MG TAB PO STA (09:13)
[2024-07-12] MEDS: IV FLUID CONTINUATION 1,000 ML IV ONE (09:14)
[2024-07-12 09:28] VITALS: RESP 16; TEMP 98
[2024-07-12] MEDS: fentaNYL (PF) 50 MCG/ML 2 ML AMP IVP ONE (12:14)
[2024-07-12] MEDS: MIDAZOLAM 2 MG/2 ML VIAL IVP ONE (12:14)
[2024-07-12] MEDS: LIDOCAINE 1% INJ 10MG/ML (20 ML MDV) SQ ONE (12:21)
[2024-07-12] MEDS: VERAPAMIL SYRINGE (5 MG/10 ML) INTRAARTER ONE (12:23)
[2024-07-12] MEDS: HEPARIN SODIUM 1,000 UN/ML (10ML VL) IV ONE (12:27)
[2024-07-12] MEDS: HEPARIN SODIUM,PORCINE (1 ML) 2,500 UNIT in SODIUM CHLORIDE 0.9% 250 ML IRRIGATION PRN (12:33)
[2024-07-12] MEDS: HEPARIN SODIUM,PORCINE 10,000 UNIT in SODIUM CHLORIDE 0.9% 1,000 ML IRRIGATION PRN (12:33)
[2024-07-12] MEDS: IOPAMIDOL-370 100ML BTL INJ ONE (12:33)
[2024-07-12 15:20] VITALS: BP 132/95; PULSE 66
== END 2024-07-12 15:39 | disposition home or self-care (01) ==
LOC: CATHCVL 08:56
PROVIDERS: ATTEND Internal Medicine
DX: R94.39 Abnormal result of other cardiovascular function study (principal); I25.10 Atherosclerotic heart disease of native coronary artery without angina pectoris; I65.29 Occlusion and stenosis of unspecified carotid artery; I48.0 Paroxysmal atrial fibrillation; Z79.01 Long term (current) use of anticoagulants; I10 Essential (primary) hypertension; E78.5 Hyperlipidemia, unspecified
CPT/HCPCS: 93458; C1769 ×2; C1894; J2250; J1644 ×3; J2003; J3010; Q9967

== ENCOUNTER → 2024-09-02 | Outpatient (CLI) | payer MEDICARE, OTHER ==
[2024-09-02 14:46] LABS: HGB 17.2 g/dL (13.0-17.0); MCHC 33.1 g/dL (32.0-37.0); MCV 99.8 FL (80.0-97.0); Mean Platelet Volume 9.4 FL (9.5-12.2); NRBC Per 100 WBC 0 X 10*3/uL (0.00-0.01); Platelet Count 194 X 10*3/uL (140-440); RBC 5.21 X 10*6/uL (4.40-5.60); RDW 13.4 % (11.5-14.5); WBC 7.39 X 10*3/uL (4.50-10.00)
[2024-09-02 15:20] LABS: Blood Urea Nitrogen 10.1 mg/dL (9.0-27.0)
[2024-09-02 15:21] LABS: Carbon Dioxide 20.7 mmol/L (21.6-31.8); Chloride 105 mmol/L (96-109); Potassium 4.3 mmol/L (3.5-5.5); Sodium 138 mmol/L (135-145)
== END | disposition home or self-care (01) ==
LOC: LABPAT 08:44
PROVIDERS: ATTEND Internal Medicine Clinical Cardiac Electrophysiology
DX: Z01.812 Encounter for preprocedural laboratory examination (principal); I44.2 Atrioventricular block, complete; I42.1 Obstructive hypertrophic cardiomyopathy; Z95.810 Presence of automatic (implantable) cardiac defibrillator
CPT/HCPCS: 80051; 82565; 84520; 85027

== ENCOUNTER 2024-09-15 13:03 | Day surgery (SDC) | payer MEDICARE, OTHER ==
[2024-09-13 13:54] VITALS: BMI 32.9
[2024-09-15] MEDS: SODIUM CHLORIDE 0.9% 1,000 ML IV SCH ×2 (13:35→20:36)
[2024-09-15] MEDS: IV FLUID CONTINUATION 1,000 ML IV ONE (13:36)
[2024-09-15] MEDS: ROPIVACAINE 5 MG/ML 30 ML VIAL MISCELLANE ONE (15:51)
[2024-09-15] MEDS ORDERED: MIDAZOLAM 2 MG/2 ML VIAL ONE (16:00)
[2024-09-15] MEDS ORDERED: diphenhydrAMINE 50 MG/ML 1 ML VIAL ONE (16:00)
[2024-09-15] MEDS ORDERED: fentaNYL (PF) 50 MCG/ML 2 ML AMP ONE (16:00)
[2024-09-15] MEDS ORDERED: VANCOMYCIN IV PER PHARMACY 1 EACH MISC MISCELLANE PRN (16:20)
[2024-09-15] MEDS: ceFAZolin 1 GM in SODIUM CHLORIDE 0.9% IRRIG BTL 250 ML IRRIGATION PRN (16:29)
[2024-09-15] MEDS: LIDOCAINE 1% INJ 10MG/ML (20 ML MDV) SQ ONE ×2 (16:49→16:55)
[2024-09-15] MEDS: VANCOMYCIN 1,250 MG in SODIUM CHLORIDE 0.9% 250 ML IVPB STA (17:00)
--- NOTE | 2024-09-15 18:40 | P.EPPROC ---
- EP Procedure Note Electrophysiology Procedure Note: Diagnosis Dual-chamber ICD in situ for primary prevention of sudden cardiac , history of hypertrophic cardiomyopathy with complete heart block/pacemaker dependent Dual-chamber ICD at [facility] Worsening cardiomyopathy, chronic, nonischemic, left ventricular ejection fraction 45% with 100% RV pacing Normal coronary arteries by coronary angiography recently Congestive heart failure [place] Heart [employer] class, class II-III Wide QRS, 100% paced. Recent onset decrease in LV systolic function On guide line directed medical treatment for greater than 3 months Procedure: Biventricular ICD upgrade for management of risk of sudden cardiac and worsening congestive heart failure in the setting of worsening LV systolic function secondary to 100% RV pacing Result: Successful biventricular ICD upgrade, Chronic atrial lead: 0.8 V at 0.5 ms, pacing impedance 510 ohms and P waves greater than 5 mV RV ICD lead: 1.9 V at 0.5 ms, no R waves, pacing impedance 340 ohms Left bundle pacing lead for biventricular activation: Right bundle branch block morphology, threshold 0.5 V at 0.5 ms, pace impedance 550 ohms High-voltage pacing impedance 49 ohms Procedure details: Patient was brought to the EP lab in a fasting state. Written informed consent was obtained prior to the procedure. Options, pros and cons, benefits and risks and complications discussed with patient in detail prior to the procedure (shared decision making) previously. Importance of continuing medical treatment emphasized previously. Alternatives discussed previously. The left pectoral area was prepped and draped as a protocol. IV antibiotics administered 1% lidocaine was used for local anesthesia. A 4 cm incision was made parallel to the deltopectoral groove, about 1.5 cm medial to it. The incision was carried down to the level of the pectoralis muscle and the subfascial pocket was made. Hemostasis was assured. The axillary vein access was obtained. Appropriately sized into to see sheaths were placed. Using a Medtronic His bundle sheath, a model #3830 Medtronic lead was positioned in the RV septum and screwed in to the left bundle area. Typical right bundle branch block morphology was noted. Stimulus to QRS 88 ms. QRS width greater than 145 ms paced excellent thresholds Leads secured to the underlying pectoral muscle after removing sheaths . Pocket irrigated with antibiotic solution. Antibiotic pouch placed Leads connected to the biventricular ICD generator. Wound closed in 3 layers and dressed per protocol Biventricular ICD interrogated and programmed. Appropriate pacing parameters, antitachycardia therapies with antitachycardia pacing cardioversion defibrillati ons programmed. AV delay and biventricular pacing parameters programmed to achieve optimal physiologic pacing, DDDR 60-140 bpm, paced AV delay of 200 ms and LV-RV offset of 80 ms Patient tolerated the procedure well without any acute complications. See scanned device report in EMR for lead details
[2024-09-15] MEDS: lisinopriL 20 MG TAB PO SCH (20:28)
[2024-09-15] MEDS: ATORVASTATIN 10 MG TAB PO SCH (20:28)
[2024-09-15] MEDS: ACETAMINOPHEN IV (For NPO) 1,000 MG in EMPTY BAG 1 BAG IVPB ONE (20:29)
[2024-09-15] MEDS: RIVAROXABAN 20 MG TAB PO SCH (20:29)
[2024-09-16] MEDS: ACETAMINOPHEN TAB 325 MG TAB PO PRN (03:36)
--- NOTE | 2024-09-16 07:19 | XR ---
EXAMINATION TYPE: XR chest 2V DATE OF EXAM: 09/16/2024 6:59 AM COMPARISON: Chest radiographs from 10/03/2023 TECHNIQUE: XR chest 2V Frontal and lateral views of the chest. CLINICAL INDICATION:Male, 68 years old with history of Lead placement check; FINDINGS: Lungs/Pleura: There is no evidence of pleural effusion, focal consolidation, or pneumothorax. Pulmonary vascularity: Unremarkable. Heart/mediastinum: Cardiomediastinal silhouette is enlarged and stable. Three lead cardiac conduction device overlying the left hemithorax with lead tips projecting over the right ventricle, right atriu m and coronary sinus. Musculoskeletal: Multiple level degenerative disc disease changes seen throughout the spine. Midline sternotomy wires are noted and stable. Other: Postsurgical changes at the GE junction with surgical clips. IMPRESSION: 1. No acute cardiopulmonary disease/process. 2. 3-lead cardiac conduction device with leads appearing to be in appropriate position. [facility], , 09/16/2024 7:16 AM
[2024-09-16 07:47] VITALS: BP 135/78; PULSE 64; RESP 16; TEMP 98.1
[2024-09-16] MEDS ORDERED: RIVAROXABAN 20 MG TAB PO SCH (09:00)
[2024-09-16] MEDS: METOPROLOL SUCCINATE (ER) 50 MG TAB.ER.24H PO SCH (09:12)
[2024-09-16] MEDS: SPIRONOLACTONE 25 MG TAB PO SCH (09:12)
--- NOTE | 2024-09-21 11:34 | P.DS ---
Providers Attending physician: Iggy Burden Primary care physician: [facility] Course: Patient is doing well post procedure No swelling no hematoma no soakage Heart sounds are normal Breath sounds are clear Blood pressure within normal limits Impression Worsening nonischemic cardiomyopathy with 100% RV pacing Congestive heart failure class II-III Left ventricular ejection fraction 45% Pacemaker dependency Recent onset decrease in LV systolic function despite longstanding use of guideline directed heart failure medications Upgrade to a biventricular ICD Twelve-lead EKG paced right bundle branch block morphology, typical with rapid early activation in the lateral precordial leads Device interrogation within normal limits Chest x-ray within normal limits lead in stable position Plan Further maximization of cardiac medications Follow-up in 1 week in the office Discharge home today Plan - Discharge Summary Discharge Rx Participant: No New Discharge Prescriptions: New Metoprolol Succinate [Toprol XL] 100 mg PO DAILY #90 tab Discontinued Metoprolol Succinate (ER) [Toprol Xl] 50 mg PO DAILY No Action Simvastatin [Zocor] 20 mg PO HS Cetirizine HCl [Zyrtec] 10 mg PO DAILY Spironolactone [Aldactone] 25 mg PO DAILY Fluticasone Nasal [place] [Flonase Nasal [place]] 2 spray EA NOSTRIL DAILY Rivaroxaban [Xarelto] 20 mg PO DAILY Acetaminophen [Tylenol Arthritis] 650 mg PO Q4-6H PRN PRN Reason: Pain Doxycycline [Vibramycin] 100 mg PO BID lisinopriL [Zestril] 20 mg PO HS Discharge Medication List Cetirizine HCl [Zyrtec] 10 mg PO DAILY 06/25/15 [History] Simvastatin [Zocor] 20 mg PO HS 06/25/15 [History] Fluticasone Nasal [place] [Flonase Nasal [place]] 2 spray EA NOSTRIL DAILY 03/15/19 [History] Rivaroxaban [Xarelto] 20 mg PO DAILY 03/15/19 [History] Spironolactone [Aldactone] 25 mg PO DAILY 03/15/19 [History] lisinopriL [Zestril] 20 mg PO HS 07/12/24 [History] Acetaminophen [Tylenol Arthritis] 650 mg PO Q4-6H PRN 08/03/24 [History] Doxycycline [Vibramycin] 100 mg PO BID 08/03/24 [History] Metoprolol Succinate [Toprol XL] 100 mg PO DAILY #90 tab 09/15/24 [Rx] Follow up Appointment(s)/Referral(s): Iggy Burden MD [STAFF PHYSICIAN] - 09/22/24 3:00 pm (FOLLOW UP APPOINTMENT AT THE DEVICE CLINIC HAS BEEN MADE. ) Patient Instructions/Handouts: Surgical Site Infections (GEN), Self-Care Measures with a Chronic Disease (GEN), Implantable Cardioverter Defibrillator (GEN) Activity/Diet/Wound Care/Special Instructions: PATIENT EDUCATION MATERIAL Instructions following a heart rhythm device implant. 1. Keep dressing DRY for 5 DAYS. You may cover the area with Saran or Cling Wrap, prior to a shower. 2. The dressing will be removed in the Device Clinic at [facility]. Absorbable sutures were used to close the wound. 3. Avoid raising the left arm above the shoulder level. 4 week restriction 4. Avoid arm movements, like backscratching, rubbing the head, or pulling on a cord. 4 weeks restriction 5. Gentle range of motion movements of the shoulder, closest to the incision should be performed to avoid a frozen shoulder. (Pendulum exercises of the shoulder) 6. The opposite arm may be used freely. 7. Avoid driving for 7 days. 8. Avoid activities such as golfing, swimming, weed whacking, lifting more than 10 pounds weight, bowling, gymnastics and weight training/lifting. (6 weeks restriction) 9. Activities such as wood chopping with an axe, pull-ups in the gymnasium, power lifting, arc-welding, being close to home induction cooktops will always be a problem. 10. Arm sling is only a reminder not to raise the arm above the head. You do not need to keep the arm completely immobilized. Your free to move the arm and use it and for normal activities. In case of any problems, please call [facility] [place], @ [phone], Attention: Device Clinic Device clinic follow-up in 5 days Follow-up with primary tube puller in 2-3 months Increase Toprol-XL to 100 mg p.o. daily Discharge Disposition: HOME SELF-CARE
== END 2024-09-16 12:05 | disposition home or self-care (01) ==
LOC: CATHEP 13:03 → 6NMEDSUR 18:22 → CATHEP 09-16 12:05
PROVIDERS: ATTEND Internal Medicine Clinical Cardiac Electrophysiology
DX: Z45.02 Encounter for adjustment and management of automatic implantable cardiac defibrillator (principal); I42.1 Obstructive hypertrophic cardiomyopathy; I45.10 Unspecified right bundle-branch block; I11.0 Hypertensive heart disease with heart failure; I50.22 Chronic systolic (congestive) heart failure; I25.10 Atherosclerotic heart disease of native coronary artery without angina pectoris; E78.5 Hyperlipidemia, unspecified; I48.0 Paroxysmal atrial fibrillation; I65.29 Occlusion and stenosis of unspecified carotid artery; Z79.01 Long term (current) use of anticoagulants
CPT/HCPCS: 33249; 33241; 71046; C1769 ×3; C1882; C1730; C1887; C1892; J2250; J3370; J1200; J0690; J2003; J3010; J2795; J0131

== ENCOUNTER 2024-11-29 05:56 | Day surgery (SDC) | payer MEDICARE, OTHER ==
[2024-11-25 15:56] VITALS: BMI 33.2
[2024-11-29 06:59] LABS: African American GFR (CKD) 82 (>60 ml/min/1.73 sqM); Anion Gap 10 mmol/L; Blood Urea Nitrogen 17 mg/dL (9-20); Carbon Dioxide 24 mmol/L (22-30); Chloride 103 mmol/L (98-107); Glucose 115 mg/dL (74-99); Non-African American GFR(CKD) 71 (>60 ml/min/1.73 sqM); Potassium 4.4 mmol/L (3.5-5.1); Sodium 137 mmol/L (137-145)
[2024-11-29] MEDS ORDERED: SODIUM CHLORIDE 0.9% 1,000 ML IV SCH (07:19)
[2024-11-29] MEDS ORDERED: LACTATED RINGERS 1,000 ML IV SCH (07:19)
[2024-11-29] MEDS ORDERED: PROPOFOL 10 MG/ML 20 ML VIAL IV ONE (07:23)
[2024-11-29 07:24] VITALS: RESP 16; TEMP 98.4
[2024-11-29] MEDS: IV FLUID CONTINUATION 1,000 ML IV ONE (07:27)
[2024-11-29] MEDS: IV FLUID CONTINUATION 500 ML IV ONE (07:28)
--- NOTE | 2024-11-29 08:09 | P.EPPROC ---
- EP Procedure Note Electrophysiology Procedure Note: Diagnosis Hypertrophic cardiomyopathy with mild CAD on coronary angiography and elevated LVEDP Reduced LV systolic function with an ejection fraction of 45% secondary to 100% RV pacing Upgrade to a biventricular ICD with left bundle pacing With left bundle pacing: Activation time 95 ms, QRS width 146 ms Patient brought in for defibrillation level testing Details patient has a ground heart failure device implanted on 15 September 2024. Upgrade date Atrial pacing threshold 0.75 V at 0.5 ms, P waves 4 mV and pace impedance 550 ohms RV pacing threshold 1.7 V at 0.5 ms. No R waves pacemaker dependent. Pacing impedance 310 ohms LV pacing threshold 1.25 V at 0.5 ms, pacing impedance 350 ohms High-voltage impedance 50 ohms Defibrillation level testing performed Shock defib protocol was used to induce ventricular fibrillation high-voltage impedance 54 ohms no post shock noise Successful defibrillation at 10 J No dropouts at least sensitivity Devices reprogrammed with appropriate antitachycardia pacing cardioversion and defibrillation First cardioversion at 20 J with a 10 J safety margin Left bundle pacing, DDDR 60-140 LV RV offset 80 ms Patient tolerated the procedure well without any acute complications Plan Start Jardiance/Farxiga 10 mg p.o. daily heart failure managed Reassess LV function His LV function has not improved then switch from lisinopril to Entresto and add eplerenone
[2024-11-29 11:06] VITALS: BP 133/67; PULSE 60
== END 2024-11-29 09:07 | disposition home or self-care (01) ==
LOC: CATHEP 05:56
PROVIDERS: ATTEND Internal Medicine Clinical Cardiac Electrophysiology
DX: I42.2 Other hypertrophic cardiomyopathy (principal); I25.10 Atherosclerotic heart disease of native coronary artery without angina pectoris; Z45.02 Encounter for adjustment and management of automatic implantable cardiac defibrillator; I50.9 Heart failure, unspecified; I49.01 Ventricular fibrillation
CPT/HCPCS: 93642; 80048; J2704